=== PATIENT | female | born 1965 | race Caucasian/White ===

== ENCOUNTER → 2023-01-20 13:33 | Outpatient (CLI) | payer BC, SELFPAY ==
--- NOTE | ~2023-01-20 | MM_ITS ---
EXAMINATION: MM screening obnnie BI w elida HISTORY: Screening mammogram TECHNIQUE: Craniocaudal and mediolateral oblique 3-D tomosynthesis images were obtained and synthetic 2-D images were generated. CAD analysis was submitted and interpreted. COMPARISON: 06/04/2015 bilateral screening mammogram BREAST PARENCHYMAL COMPOSITION: The breasts are heterogeneously dense, which may obscure small masses . FINDINGS: History of prior benign right stereotactic breast biopsy, 06/26/2015. Numerous bilateral benign appearing microcalcifications are noted. There is no evidence of suspicious mass, calcification, or architectural distortion to suggest malig micky in either breast. There has been no suspicious interval change. IMPRESSION: 1. No mammographic evidence of malignancy. 2. Recommend routine screening mammography in one year. BI-RADS Category 2: Benign finding(s). Reviewed, dictated and finalized at location A.
== END ==
PROVIDERS: PCP Internal Medicine; Visit Provider Internal Medicine
DX: Z12.31 Encounter for screening mammogram for malignant neoplasm of breast (principal)
CPT/HCPCS: 77063; 77067

== ENCOUNTER 2024-01-22 06:46 | Emergency (ER) | payer BC, SELFPAY ==
--- NOTE | ~2024-01-22 | CT_ITS ---
EXAMINATION: CT abdomen pelvis w con DATE: 01/22/2024 08:17 INDICATION: Gross hematuria. TECHNIQUE: Computed tomography (CT) of the abdomen and pelvis was performed with 100 mL Omnipaque 350 intravenous contrast. Automated exposure control and iterative reconstruction technique were employe d. The dose-length product was 1469.00 mGy-cm. COMPARISON: None. FINDINGS: The visualized portion bases are clear without pneumonia or pleural effusion. The heart siz e is normal. No pericardial effusion. The liver and spleen are normal. There are changes of cholecyst ectomy. The pancreas and adrenal glands are normal. There is cortical thinning of the kidneys. There are no dilated loops of bowel. There are no pathologically enlarged lymph nodes. There is no free int raperitoneal fluid. There is a 6.1 x 1.4 cm mass at the left lateral wall of the bladder. There is se alex lumbar spondylosis. IMPRESSION: 1. Bladder mass, consistent with urothelial carcinoma versus hematoma. Reviewed, dictated and finalized at location E.
[2024-01-22 06:52] VITALS: BP 156/84; PULSE 79; RESP 16; TEMP 36.3; O2SAT 96
[2024-01-22 07:40] LABS: Bacteria Urine None Seen /hpf; Non Pathogenic Casts 0-2; RBC Urine >100 /hpf (0-2); Squamous Epithelial Cell Urine Occasional /hpf (Few); WBC Urine 21-50 /hpf (0-3)
[2024-01-22 07:46] LABS: Basophils Absolute Auto 0.1 K/mm3 (0.0-0.1); Basophils Percent Auto 0.8 % (0.2-1.2); Eosinophils Absolute Auto 0.4 K/mm3 (0-0.3); Eosinophils Percent Auto 4.6 % (0-4.4); Hematocrit 37.8 % (37.0-47.0); Hemoglobin 12.8 g/dL (12.0-15.0); Immature Granulocyte Absolute 0.03 K/mm3 (0.00-0.031); Immature Granulocyte Percent A 0.3 % (0-0.5); Lymphocytes Absolute Auto 1.85 K/mm3 (0.9-3.2); Mean Corpuscular HGB Conc 33.9 g/dl (32-36); Mean Corpuscular Hemoglobin 31.5 pg (26-34); Mean Corpuscular Volume 93.1 fl (80-100); Mean Platelet Volume 12.1 fl (7.4-10.4); Monocytes Absolute Auto 0.4 K/mm3 (0.1-0.6); Monocytes Percent Auto 4.2 % (2.6-8.5); Neutrophils Absolute Auto 6.1 K/mm3 (1.3-6.7); Neutrophils Percent Auto 69.1 % (45.5-73.1); Platelet Count Result 193 k/mm3 (150-375); Red Blood Count 4.06 M/mm3 (4.2-5.4); Red Cell Distribution Width 12.9 % (11.5-14.5); White Blood Count 8.8 K/mm3 (4.5-10.0)
--- NOTE | 2024-01-22 07:46 | PC.NURSE ---
Assumed care of pt. Pt voided 30ml of bloody urine with large blood clot. Pt states for 1 month has been urinating blood off and on . Seen by urologist at [facility], pt doesn't know urologist name. Pt reports is scheduled for a dye test then a scope this week sometime. Pt poor historian, doesn't have information with her from urologist. Dr. Mcmahan informed.
--- NOTE | 2024-01-22 07:47 | ED.GENADULT ---
HPI - General Adult General Chief complaint: Urogenital-Female Stated complaint: urinary frequency Time Seen by Provider: 01/22/24 06:53 History of Present Illness HPI narrative: 58-year-old female presenting to the emergency department for evaluation of hematuria. Patient has been having issues with hematuria and did have follow-up with Urology. Patient is scheduled to have a cystoscopy this week. Patient reports that she began having some increased abdominal pain abdominal cramping last night. Patient reports that she was having some increased urinary pressure last night and did pass a urinary clot while she was here Related Data Allergies Allergy/AdvReac Type Severity Reaction Status Date / Time naproxen Allergy Unknown Unverified 10/30/14 11:09 Review of Systems Review of Systems: All systems reviewed & are unremarkable except as noted in HPI and below Exam Narrative: APPEARANCE: Well appearing, no pain, no distress, well-nourished. HEAD: normocephalic, atraumatic. EYES: PERRLA/EOMI, conjunctivae clear. NOSE: Normal no drainage EARS:TMS clear with good light reflex. THROAT: Pharynx clear, no exudate. NECK: Supple. No adenopathy, no masses. RESPIRATORY: Airway patent, respirations nonlabored. Clear to auscultation bilaterally, no rales, rhonchi, wheezing. CARDIOVASCULAR: Regular rate and rhythm without murmurs rubs or gallops. ABDOMINAL: Soft, nontender, nondistended, normal bowel sounds MUSCULOSKELETAL: Moves all extremities. Strength/ROM intact, No edema, No calf tenderness. NEURO: Alert. Cranial nerves II through XII intact. Grossly intact SKIN: Warm, dry. Normal Color Course Vital Signs Vital signs: Vital Signs Temperature 97.4 F L 01/22/24 06:52 Pulse Rate 79 01/22/24 06:52 Respiratory Rate 16 01/22/24 06:52 Blood Pressure 156/84 H 01/22/24 06:52 Pulse Oximetry 96 01/22/24 06:52 Oxygen Delivery Room Air 01/22/24 06:52 Temperature 97.8 F 01/22/24 09:06 Pulse Rate 80 01/22/24 09:06 Respiratory Rate 18 01/22/24 09:06 Blood Pressure 127/82 01/22/24 09:06 Pulse Oximetry 97 01/22/24 09:06 Oxygen Delivery Room Air 01/22/24 06:52 Medical Decision Making [facility] Narrative Medical decision making narrative: 58-year-old female presenting emergency department for evaluation hematuria. Patient is afebrile with a stable hemoglobin of 12.8. INR is 0.9, patient has normal kidney function. UA does have gross hematuria. Patient had no significant residual urine on the postvoid residual bladder scan. CT scan did show evidence a bladder wall mass. Case was discussed with Dr. Centeno, since the patient is continuing to urinate has no urinary retention they did not feel the patient required CBI. They also felt the patient would be suitable for discharge home and continued to have outpatient cystoscopy as scheduled. Patient was updated on the results of the CT scan concern for bladder mass. Patient is also strongly encouraged to have close follow-up with Urology as scheduled. Patient was also encouraged to drink plenty fluids and was educated on reasons to return to the emergency department. Differential Diagnosis Differential Diagnosis: UTI, bladder wall mass, urinary retention Vital Signs Vital Signs: Vital Signs Temperature 97.4 F L 01/22/24 06:52 Pulse Rate 79 01/22/24 06:52 Respiratory Rate 16 01/22/24 06:52 Blood Pressure 156/84 H 01/22/24 06:52 Pulse Oximetry 96 01/22/24 06:52 Oxygen Delivery Room Air 01/22/24 06:52 Temperature 97.8 F 01/22/24 09:06 Pulse Rate 80 01/22/24 09:06 Respiratory Rate 18 01/22/24 09:06 Blood Pressure 127/82 01/22/24 09:06 Pulse Oximetry 97 01/22/24 09:06 Oxygen Delivery Room Air 01/22/24 06:52 Lab Data Lab results reviewed: Yes I reviewed the patient's lab results. 01/22/24 07:41 01/22/24 07:41 Labs: Lab Results 01/22/24 01/22/24 Range/Units 07:29 07:
[2024-01-22 07:50] VITALS: BP 128/69; PULSE 74; RESP 18; TEMP 36.4; O2SAT 96
[2024-01-22 07:50] LABS: Appearance Urine Turbid (Clear); Bilirubin Urine 1+ (Negative); Blood Urine 3+ (Negative); Color Urine Brown (Yellow); Glucose Urine UA 3+ mg/dL (Negative); Ketones Urine Negative (Negative); Leukocyte Esterase Ur 1+ LEU/UL (Negative); Nitrate Urine Negative (Negative); Protein Urine 2+ mg/dL (Negative); Specific Grav Ur 1.024 (1.001-1.035)
[2024-01-22 07:51] LABS: Add Urine Microscopic? YES
[2024-01-22 07:56] LABS: Alanine Aminotransferase 14 U/L (6-35); Albumin Level 4.1 g/dL (3.5-5.1); Alkaline Phosphatase 66 U/L (38-126); Anion Gap 7 mmol/L (4-12); Aspartate Amino Transferase 20 U/L (14-36); Bilirubin,Total 0.6 mg/dL (0.2-1.3); Blood Urea Nitrogen 21 mg/dL (7-17); Calcium 8.9 mg/dL (8.4-10.2); Carbon Dioxide 24 mmol/L (22-30); Chloride 105 mmol/L (98-107); Estimated CRCL calculation 98 ml/min; Estimated Glomerular Filt Rate > 60; Glucose 275 mg/dL (65-110); Potassium 4.5 mmol/L (3.4-5.0); Sodium 136 mmol/L (137-145)
[2024-01-22 08:00] LABS: INR 0.9; Prothrombin Time 12.7 Seconds (11.1-14.7)
[2024-01-22 08:01] LABS: Partial Thromboplastin Time 26.3 Seconds (22.3-36.8)
[2024-01-22 08:41] VITALS: BP 135/80; PULSE 72; RESP 18; TEMP 36.6; O2SAT 97
[2024-01-22 09:06] VITALS: BP 127/82; PULSE 80; RESP 18; TEMP 36.6; O2SAT 97
== END 2024-01-22 09:08 | disposition home or self-care (01) ==
PROVIDERS: Emergency Provider Emergency Medicine; PCP Family Medicine
DX: R31.9 Hematuria, unspecified (principal); N32.9 Bladder disorder, unspecified
CPT/HCPCS: 36415; 74177; 80053; 81001; 85025; 85610; 85730; 87086; 87088; 99284; Q9967

== ENCOUNTER 2024-01-30 15:09 | Outpatient (CLI) | payer BC, SELFPAY ==
--- NOTE | 2024-01-30 15:15 | ECG_ITS ---
Test Date: 2024-01-30 15:40:24 Measurements Intervals Rolfe Rate: 67 P: 0 DC: 0 QRS: 42 QRSD: 99 T: 48 QT: 396 QTc: 420 Interpretive Statements SINUS RHYTHM WITH 2ND DEGREE AV BLOCK, MOBITZ TYPE II LOW QRS VOLTAGE IN PRECORDIAL LEADS [QRS DEFLECTION < 1.0 mV IN CHEST LEADS] No previous ECG available for comparison Electronically Signed On 01-31-2024 11:46:05 CDT by Etta Jensen M.D.
== END 2024-01-30 15:10 | disposition home or self-care (01) ==
LOC: ANHSURGERY 15:14
PROVIDERS: PCP Family Medicine; Visit Provider Urology
DX: I10 Essential (primary) hypertension (principal); Z01.818 Encounter for other preprocedural examination
CPT/HCPCS: 93005

== ENCOUNTER 2024-02-01 00:59 | Day surgery (SDC) | payer BC, SELFPAY ==
[2024-01-26 11:47] VITALS: BMI 40.8
--- NOTE | 2024-01-26 11:56 | PC.NURSE ---
Report to the Outpatient Waiting Room, entrance under the green pavilion located off [facility], at time _1200_ on date _[id number]_. Planned Procedure Time: _1400_. Time changes happen often and if your time is changed the preop area will call you the afternoon before. - You and your visitor will be asked to self-screen and do not enter if you have any COVID symptoms. - A mask is optional within the hospital at this time. Patients may have clear liquids (water, carbonated beverages, clear teas, apple juice) until 3 hours prior to surgery with a maximum of 20 ounces. - No food from midnight until time of surgery Take the following medications with a SIP of water the morning of surgery: __None DO NOT STOP ANY OF YOUR OTHER PRESCRIPTION MEDICATIONS PRIOR TO SURGERY ?EXCEPT THE FOLLOWING Medications to discontinue per physician ____None Date to take last dose Please no make-up, nail kazakh, hairspray, perfume, deodorant, or body powder the day of surgery. No jewelry (including any body piercings) or valuables the day of surgery, leave them at home. Please take a shower or bath the night before, or the morning of, surgery with an antibacterial soap. Wear comfortable, loose fitting clothing. - Jewelry must be removed prior to entering the operating room. Rings and piercings that are not removed may be cut off. - The hospital will not accept responsibility for valuables. - Please leave all valuables, including medications, at home the day of surgery. If you are going home after surgery, a licensed dedicated local truck driver must drive you home. - NO public transportation without another adult if you receive anesthesia. - We recommend that an adult stay with you for 24 hours following discharge. - We also recommend that you do not drive, make important decision, drink alcoholic beverages, or take any drugs that were not prescribed by your health care provider for at least 24 hours after your discharge time. Follow any additional instructions given to you from your surgeon. If you or anyone in your household have experienced Covid symptoms in the past week, please notify your surgeon or the nurse liaison at the phone number below for possible testing. Telephone instructions given to Jooanthony__and asked if any additional questions and then verbalized understanding. Patient advised to call surgeon office or pre surgery nurse liaison [phone] if any additional questions.
[2024-02-01] VITALS (9 sets, daily range): BP systolic 102–139; BP diastolic 65–83; PULSE 60–87; RESP 12–20; TEMP 36.1–36.2; O2SAT 94–100
--- NOTE | 2024-02-01 05:59 | WPDHPUPDATE1 ---
History and Physical Update Update Date/Time: 02/01/24 05:59 History and Physical has been reviewed, including an updated exam of the patient. There are NO changes in the patient's condition. Risks, benefits, and alternatives have been discussed and questions answered. Patient agrees to proceed with procedure.
[2024-02-01] MEDS: LACTATED RINGERS 1,000 ML 30 ML IV CONT ×2 (12:30→15:34)
[2024-02-01 12:39] LABS: Glucose Point of Care 203 mg/dl (65-105)
--- NOTE | 2024-02-01 12:40 | P.PNAN_ITS ---
Anes - Initial Pre Proc Eval Procedure: Operation Date: 02/01/24 14:00 Proposed Procedures p Trans Urethral Resection Bladder Tumor with Gemcitabine Instillation - Mayo Grier MD Date/Time: 02/01/24 12:40 Surgeon: Mayo Grier MD Pre Op Diagnosis: bladder tumor Patient Data Age: 58 Gender: F Height: 1.65 m Weight: 111.4 kg Allergies Allergy/AdvReac Type Severity Reaction Status Date / Time naproxen Allergy Mild Hives Unverified 01/26/24 11:43 Home Medications Medication Instructions Recorded Confirmed Type atorvastatin 10 mg tablet 10 mg PO QPM 01/26/24 01/26/24 History famotidine 20 mg tablet 20 mg PO BID 01/26/24 01/26/24 History furosemide 40 mg tablet 40 mg PO QAM 01/26/24 01/26/24 History lisinopril 5 mg tablet 5 mg PO QAM 01/26/24 01/26/24 History metformin 1,000 mg tablet 100 mg PO DAILY bid 01/26/24 01/26/24 History montelukast 10 mg tablet 10 mg PO QAM 01/26/24 01/26/24 History pioglitazone 15 mg tablet 15 mg PO HS 01/26/24 01/26/24 History Laboratory Tests 02/01/24 12:27 POC Capillary Glucose 203 H mg/dl (65-105) Patient hx anesthesia problems: none Family hx anesthesia problems: none Results Review: All pre-operative results and documents have been reviewed as part of the pre- operative evaluation. [facility] Social History Social History Smoking packs per day: 1 Smoking cigarettes per day: 20.0 Years smoked: 20 Smoking pack-years: 20.00 Smoking status: Former smoker Tobacco type: cigarettes Smoking end date: 01/25/14 Living arrangements: with family Spiritual care concerns: No Anes - Eval Final PreProcedure Day of Procedure 02/01/24 12:40 Patient weight: morbidly obese Heart: regular rate and rhythm Lungs: decreased breath sounds Airway: Mallampati scale class II Neurological: alert and oriented Last oral intake: >/= 8 hours ASA classification: III Emergent: no Anesthetic plan: proceed Anesthesia type and monitoring: general LMA and standard monitoring Results Review: All pre-operative results and documents have been reviewed as part of the pre- operative evaluation. Informed Consent: The patient's anesthetic plan and its attendant risks and benefits were discussed with the patient/family/POA. Questions were solicited and answers provided to the satisfaction of the patient/family/POA.
[2024-02-01] MEDS: ceFAZolin 2 GM/D5W 50 ML 2 GM/50 ML BAG IVPB (13:40)
[2024-02-01 14:48] LABS: Glucose Point of Care 178 mg/dl (65-105)
[2024-02-01] MEDS: SODIUM CHLORIDE 0.9% IV 23.7 ML, GEMCITABINE HCL 1,000 MG BLADDER ×2 (14:54→14:55)
--- NOTE | 2024-02-01 14:58 | W.PM.PROC2 ---
Procedure Note - Detailed Date of Procedure 02/01/24 Pre-op Diagnosis Bladder tumor Post-op Diagnosis Same Procedure Performed TURBT (large, 5-6cm) Surgeon Mayo Grier MD Anesthesia General Description of Procedure This pleasant lady is prepped and draped in routine sterile fashion in the OR after the uneventful induction of a general endotracheal anesthetic while in a supine position. Twenty-four F resectoscope was placed in her bladder. Her bladder was carefully inspected. She has this neoplastic growth overlying the left anterior lateral bladder wall. It is somewhat solid in appearance and quite sizable, measuring approximately 5-6 cm. Using a 24 F resectoscope I was able to resect this in its entirety. I sent separate specimen from the body of the bladder tumor in the bladder tumor base. There was no apparent compromise to the integrity of the bladder wall. Base and periphery were vigorously cauterized. This was all done with care to avoid injury to the ureteral orifices. Patient was taken recovery room in good condition Drains Yes Packing No Pathology Yes Complications No immediate complications Condition Stable Disposition PACU
[2024-02-01] MEDS: fentaNYL CITRATE INJ (*CRX) 100 MCG/2 ML VIAL 25 MCG IV PUSH ×4 (14:59→15:33)
--- NOTE | 2024-02-01 15:01 | P.OP_ITS ---
Procedure Note - Detailed Date of Procedure 02/01/24 Pre-op Diagnosis Bladder tumor Post-op Diagnosis Same Procedure Performed Gemcitabine installation Surgeon Mayo Grier MD Anesthesia General and None Description of Procedure With the patient in the supine position, a 16F Mccartney catheter is placed using s terile technique. Using a protective facemask, gown and double layer of gloves Gemcitabine 2gm in 100cc saline is administered through the catheter/into the bladder. The catheter is then plugged. Patient was instructed to lie supine x20min, then to roll both the left and right x20 min. each. Total dwell time will be 60 min., after which the bladder will be drained and catheter removed.
[2024-02-01] MEDS: oxyCODONE HCL (*CRX) 5 MG TAB IR PO (16:23)
== END 2024-02-01 16:58 | disposition home or self-care (01) ==
PROVIDERS: PCP Family Medicine; Visit Provider Urology
PROC: 0TBB8ZZ Excision of Bladder, Via Natural or Artificial Opening Endoscopic (ICD-10-PCS; CPT 52240; principal; 2024-02-01 14:00)
DX: C67.2 Malignant neoplasm of lateral wall of bladder (principal); Z87.891 Personal history of nicotine dependence; E66.01 Morbid (severe) obesity due to excess calories; Z68.41 Body mass index [BMI] 40.0-44.9, adult; Z79.84 Long term (current) use of oral hypoglycemic drugs
CPT/HCPCS: 52240; 51720; 82948; 88305; A9270; J0330; J0690; J1100; J2250; J2405; J2704; J3010; J7120; J9201

== ENCOUNTER 2024-03-14 01:53 | Day surgery (SDC) | payer BC, SELFPAY ==
[2024-03-12 08:39] VITALS: BMI 41.5
--- NOTE | 2024-03-12 09:02 | SUR.PREOP ---
Report to the Outpatient Waiting Room, entrance under the green pavilion located off [facility], at time 0900 on date 03/14/24. Planned Procedure Time: 1100. Time changes happen often and if your time is changed the preop area will call you the afternoon before. - You and your visitor will be asked to self-screen and do not enter if you have any COVID symptoms. - A mask is optional within the hospital at this time. Patients may have clear liquids (water, carbonated beverages, clear teas, apple juice) until 3 hours prior to surgery with a maximum of 20 ounces. - No food from midnight until time of surgery Take the following medications with a SIP of water the morning of surgery: N/A DO NOT STOP ANY OF YOUR OTHER PRESCRIPTION MEDICATIONS PRIOR TO SURGERY ?EXCEPT THE FOLLOWING Medications to discontinue per physician N/A Date to take last dose N/A Please no make-up, nail slovenian, hairspray, perfume, deodorant, or body powder the day of surgery. No jewelry (including any body piercings) or valuables the day of surgery, leave them at home. Please take a shower or bath the night before, or the morning of, surgery with an antibacterial soap. Wear comfortable, loose fitting clothing. Children are encouraged to wear pajamas. - Jewelry must be removed prior to entering the operating room. Rings and piercings that are not removed may be cut off. - The hospital will not accept responsibility for valuables. - Please leave all valuables, including medications, at home the day of surgery. If you are going home after surgery, a licensed milk driver must drive you home. - NO public transportation without another adult if you receive anesthesia. - We recommend that an adult stay with you for 24 hours following discharge. - We also recommend that you do not drive, make important decision, drink alcoholic beverages, or take any drugs that were not prescribed by your health care provider for at least 24 hours after your discharge time. Follow any additional instructions given to you from your surgeon. If you or anyone in your household have experienced Covid symptoms in the past week, please notify your surgeon or the nurse liaison at the phone number below for possible testing. Telephone instructions given to RENEA BUSTAMANTE and asked if any additional questions and then verbalized understanding. Patient advised to call surgeon office or pre surgery nurse liaison [phone] if any additional questions.
[2024-03-14] VITALS (8 sets, daily range): BP systolic 131–162; BP diastolic 65–94; PULSE 63–81; RESP 13–20; TEMP 36.2–36.4; O2SAT 96–99
--- NOTE | 2024-03-14 06:12 | WPDHPUPDATE1 ---
History and Physical Update Update Date/Time: 03/14/24 06:12 History and Physical has been reviewed, including an updated exam of the patient. There are NO changes in the patient's condition. Risks, benefits, and alternatives have been discussed and questions answered. Patient agrees to proceed with procedure.
--- NOTE | 2024-03-14 09:33 | P.PNAN_ITS ---
Anes - Initial Pre Proc Eval Procedure: Operation Date: 03/14/24 11:00 Proposed Procedures p Re-Resection Bladder Tumor Base - Mayo Grier MD Date/Time: 03/14/24 09:33 Surgeon: Mayo Grier MD Pre Op Diagnosis: bladder CA Patient Data Age: 58 Gender: F Height: 1.65 m Weight: 113.4 kg Allergies Allergy/AdvReac Type Severity Reaction Status Date / Time naproxen Allergy Mild Hives Verified 03/12/24 08:41 Home Medications Medication Instructions Recorded Confirmed Type atorvastatin 10 mg tablet 10 mg PO QPM 01/26/24 03/12/24 History famotidine 20 mg tablet 20 mg PO BID 01/26/24 03/12/24 History furosemide 40 mg tablet 40 mg PO QAM 01/26/24 03/12/24 History lisinopril 5 mg tablet 5 mg PO QAM 01/26/24 03/12/24 History metformin 1,000 mg tablet 100 mg PO BID bid 01/26/24 03/12/24 History montelukast 10 mg tablet 10 mg PO QAM 01/26/24 03/12/24 History pioglitazone 15 mg tablet 15 mg PO HS 01/26/24 03/12/24 History dulaglutide 0.75 mg/0.5 mL 0.75 mg subcut WEEKLY 03/12/24 03/12/24 History subcutaneous pen injector (Trulicity) Patient hx anesthesia problems: none Family hx anesthesia problems: none Results Review: All pre-operative results and documents have been reviewed as part of the pre- operative evaluation. [facility] Past Medical History Medical History (Updated 03/14/24 @ 09:33 by Lonnie Lazo MD) Diabetes HTN (hypertension) Morbid obesity Social History Social History Smoking packs per day: 1 Smoking cigarettes per day: 20.0 Years smoked: 20 Smoking pack-years: 20.00 Smoking status: Former smoker Tobacco type: cigarettes Smoking end date: 01/25/14 Substance use: former Living arrangements: with family Spiritual care concerns: No Anes - Eval Final PreProcedure Day of Procedure 03/14/24 09:33 Patient weight: morbidly obese Heart: regular rate and rhythm Lungs: clear to auscultation Airway: Mallampati scale class II Neurological: alert and oriented Last oral intake: >/= 8 hours ASA classification: III Emergent: no Anesthetic plan: proceed Anesthesia type and monitoring: general LMA and standard monitoring Results Review: All pre-operative results and documents have been reviewed as part of the pre- operative evaluation. Informed Consent: The patient's anesthetic plan and its attendant risks and benefits were discussed with the patient/family/POA. Questions were solicited and answers provided to the satisfaction of the patient/family/POA.
[2024-03-14] MEDS: LACTATED RINGERS 1,000 ML 30 ML IV CONT (10:17)
[2024-03-14] MEDS: ceFAZolin 2 GM/D5W 50 ML 2 GM/50 ML BAG IVPB (10:38)
--- NOTE | 2024-03-14 11:13 | W.PM.PROC2 ---
Procedure Note - Detailed Date of Procedure 03/14/24 Pre-op Diagnosis History T1, high-grade bladder tumor Post-op Diagnosis Same Procedure Performed Re-resection bladder tumor base Surgeon Mayo Grier MD Anesthesia General Description of Procedure Patient is brought to the op suite she has prepped draped in routine sterile fashion while in dorsal lithotomy position after the uneventful induction of a general LMA anesthetic. A 24 F resectoscope was placed in her bladder. The bladder was carefully inspected. There was an area of recent resection the left lateral wall. There was no obvious recurrent neoplasm there or throughout the remainder of the bladder. Using a 24 F loop I resected the base of this tumor site and cauterized both the base and periphery. Patient tolerated this procedure well was taken recovery room in good condition. Drains No Packing No Pathology Yes Complications No immediate complications Condition Stable
[2024-03-14 11:25] LABS: Glucose Point of Care 146 mg/dl (65-105)
[2024-03-14] MEDS: fentaNYL CITRATE INJ (*CRX) 100 MCG/2 ML VIAL 25 MCG IV PUSH ×2 (11:34→11:37)
== END 2024-03-14 12:44 | disposition home or self-care (01) ==
PROVIDERS: PCP Family Medicine; Visit Provider Urology
PROC: 0TBB8ZZ Excision of Bladder, Via Natural or Artificial Opening Endoscopic (ICD-10-PCS; CPT 52235; principal; 2024-03-14 11:00)
DX: C67.2 Malignant neoplasm of lateral wall of bladder (principal); E11.9 Type 2 diabetes mellitus without complications; I10 Essential (primary) hypertension; E66.01 Morbid (severe) obesity due to excess calories; Z68.41 Body mass index [BMI] 40.0-44.9, adult; Z87.891 Personal history of nicotine dependence; Z79.85 Long-term (current) use of injectable non-insulin antidiabetic drugs; Z79.84 Long term (current) use of oral hypoglycemic drugs
CPT/HCPCS: 52235; 82948; 88305; J0690; J2250; J2405; J2704; J3010; J7120

== ENCOUNTER 2025-01-23 11:40 | Outpatient (CLI) | payer OTHER, SELFPAY ==
--- NOTE | ~2025-01-23 | MM_ITS ---
EXAMINATION: MM screening bonnie BI w elida HISTORY: Screening TECHNIQUE: Craniocaudal and mediolateral oblique 3-D tomosynthesis images were obtained and synthetic 2-D images were generated. CAD analysis was submitted and interpreted. COMPARISON: Comparison to multiple prior studies sequentially, with oldest reviewed study dated 04/02. BREAST PARENCHYMAL COMPOSITION: Dense: The breasts are heterogeneously dense, which may obscure small masses FINDINGS: Stable benign-appearing bilateral breast calcifications. There is no evidence of suspicious mass, calcification, or architectural distortion to suggest malignancy in either breast. There has b een no suspicious interval change. IMPRESSION: 1. No mammographic evidence of malignancy. 2. Recommend routine screening mammography in one year. BI-RADS Category 2: Benign finding(s). Reviewed, dictated and finalized at location A.
--- NOTE | ~2025-01-23 | DEXA_ITS ---
Bone Density Report Name: RENEA BUSTAMANTE Age: 59 Sex: Female Ethnicity: White Date of : 1965 Indication: postmenopausal; screening for osteoporosis; height loss; cancer; Referring Provider: LORENZO, JUSTIN Zhang Study: Bone densitometry was performed. Exam Date: January 23, 2025 Accession number: [id number] Bone Density: Region BMD T-score Z-score Classification AP Spine(L1-L4) 1.140 0.8 2.1 Normal Femoral Neck (Left) 0.813 -0.3 0.8 Normal Total Hip (Left) 1.224 2.3 3.1 Normal Femoral Neck (Right) 0.809 -0.4 0.8 Normal Total Hip (Right) 1.182 2.0 2.8 Normal Femoral Neck Mean 0.811 -0.3 0.8 Normal Total Hip Mean 1.203 2.1 2.9 Normal World Health Organization criteria for BMD impression classify patients as: Normal (T-score at or above -1.0), Osteopenia (T-score between -1.0 and -2.5), or Osteoporosis (T-score at or below -2.5). 10-year Fracture Risk: FRAX not reported because: All T-scores for Spine Total, Hip Total, Femoral Neck at or above -1.0 Clinical Information Provided by Patient: Has used the following medications: Vitamin D Has the following medical conditions: Cancer Patient maximum height was 65 Menopause Age: 54 No regular weight bearing exercise Does not regularly consume dairy products Drinks caffeinated beverages Onset of menses at age 15 Number of children 2 Impression: The patient has normal bone mass. Discussion: BONE DENSITY IS ABOVE THE MINIMUM DESIRABLE LEVEL AT ALL SKELETAL SITES TESTED. This patient?s bone mineral density is above the minimum desirable level (T-score -1.0 or better) at all sites measured. The patient should follow a healthful lifestyle (good nutrition with adequate calcium and vitamin D, and appropriate weight-bearing exercise). Follow-Up: Consider repeating this study in 5 years or sooner if there is some new clinical indication. Reported by: KANIKA on 01/23/2025 12:13:00 PM. Reviewed, dictated and finalized at location A.
--- OUTSIDE RECORDS SUMMARY | 2025-01-23 12:28 | XMS_ITS | Data Portability ---
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 Plan of Treatment Reminders Order Date Submit Date Provider Last Modified By Organization Details Last Modified Time Details Appointments None recorded . Lab pap, IG + reflex HPV 2022 023 LAUREN [facility], [address], [place], [address], 3 16:13:48 noninvas rock colorect al cancer DNA + occult blood screenin g, QL, stool 2022 023 [facility] (Cologuard Orders Only), [address], [address], [place], [address], 4 17:00:45 HbA1c (hemoglo bin A1c), blood 2022 023 [facility] In-Office Order, Internal Use Only DO Not Attach Compendium DO Not Attach Compendium, Do Not Delete/merge, [id number] 3 11:45:42 Referral gynecolo gist referral - Please call patient for praneeth bosch1 2022 023 bert LOPEZ, [address] [place], [address], 3 13:05:03 diabetic ophthalm ology referral - Please call patient for the millie segura thanks! 2022 023 [email or web address] [employer], [address], [place], [address], 3 10:59:59 Procedures None recorded . Surgeries None recorded . Imaging MAMMO, screenin g, bilatera l 2022 023 [facility] (Mammography) , [address], [place], [address], 3 15:52:25 Medication Orders amoxicil marie 500 mg-potas sium clavulan ate 125 mg tablet 2022 023 [facility], [address] [place] [address], [id number], 3 12:43:18 Olinda Allergy 60 mg tablet 2022 023 [facility], [address] [place] [address], [id number], 3 12:13:06 monteluk ast 10 mg tablet 2022 023 [facility], [address] [place] [address], [id number], 4 09:33:52 famotidi ne 20 mg tablet 2022 023 [facility], [address] [place] [address], [id number], 4 09:31:56 Nesina 25 mg tablet 2022 023 [facility], [address] [place] [address], [id number], 3 16:36:04 albutero l sulfate 2.5 mg/3 mL (0.083 %) solution for nebuliza tion 2022 023 [facility], [address] [place] [address], [id number], 3 11:51:33 albutero l sulfate HFA 90 mcg/actu ation aerosol inhaler 2022 023 [facility], [address] [place] [address], [id number], 3 11:51:35 Symbicor t 160 mcg-4.5 mcg/actu ation HFA aerosol inhaler 2022 023 [facility], [address] [place] [address], [id number], 3 11:51:33 atorvast atin 10 mg tablet 2022 023 [facility], [address] [place] [address], [id number], 4 09:31:59 lisinopr il 5 mg tablet 2022 023 [facility], [address] [place] [address], [id number], 4 09:31:59 furosemi de 40 mg tablet 2022 023 [facility], [address] [place] [address], [id number], 4 09:31:56 metformi n 1,000 mg tablet 2022 023 [facility], [address] [place] [address], [id number], 4 09:31:56 pioglita zone 15 mg tablet 2022 023 [facility], [address] [place] [address], [id number], 4 09:31:58 triamcin olone acetonid e 0.1 % topical cream 2022 023 [facility], [address] [place] [address], [id number], 10:42:10 Patient TargetsNo targets recorded. Patient Instructions Encounter Date Encounter Id Patient Instructions Last Modified By Organization Details Last Modified Time 09/16/2022 [id number] mammogram: about this test [facility] Not available 09/16/2022 10:42:11 A healthy lifest yle: care instructions [facility] Not available 09/16/2022 10:42:10 gastroesophageal reflux disease (GERD): care instructions [facility] Not available 09/16/2022 10:42:11 chronic obstruct rock pulmonary disease (COPD): care instructions [facility] Not available 09/16/2022 10:42:10 learning about c opd and how to prevent lung infections [facility] Not available 09/16/2022 10:42:10 high cholesterol : care instructions [facility] Not available 09/16/2022 10:42:11 leg and ankle ed sebastian: care instructions [facility] Not available 09/16/2022 10:42:11 02/10/2023 [id number] learning about t ype 2 diabetes [facility] Not available 02/10/2023 11:45:42 type 2 diabetes: care instructions [facility] Not available 02/10/2023 11:45:42 chronic obstruct rock pulmonary disease (COPD): care instructions [facility] Not available 02/10/2023 11:45:41 learning about c opd and how to prevent lung infections [facility] Not available 02/10/2023 11:45:42 high cholesterol : care instructions [facility] Not available 02/10/2023 11:45:42 04/28/2023 [id number] well visit, wome n 50 to 65: care instructions Not available 04/28/2023 09:04:26 A healthy lifest yle: care instructions Not available 04/28/2023 09:04:26 Naye Fernandez Discussed with NOAH Larios Not available 04/28/2023 14:40:39 06/23/2023 [id number] leg and ankle ed sebastian: care instructions jhsieh Not available 06/23/2023 12:09:55 Acute Sinusitis: Care Instructions jhsieh Not available 06/23/2023 11:58:29 When You Want to Lose Weight: Care Instructions jhsieh Not available 06/23/2023 12:09:55 gastroesophageal reflux disease (GERD): care instructions jhsieh Not available 06/23/2023 12:09:55 high cholesterol : care instructions jhsieh Not available 06/23/2023 12:09:55 Reason for Referral Diabetic Ophthalmology Refer ral for Diabetes mellitus Please call patient for the appointment, thanks! 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 for Sc reening for malignant neoplasm of cervix Please call patient for appointment, thanks1 Referring Physician: Pascale Polanco, Internal Medicine, Encounter Date: 02/10/2023 Results Created Date Observation Date Name Description Value Unit Range Abnormal Flag Note LastModifiedBy Organization Detail LastModifiedTime 04/27/20 24 04/27/2024 COLOG UARD cologuard result Cancel led - Order d not applic able Not Available [facility] (Cologuard Orders Only) [address], [place], [address], 04/27/2024 08:17:20 02/11/20 23 02/10/2023 HbA1c (hemo globi n A1c), blood HbA1c 8.6% Not Available In-Office Order Internal Use Only DO Not Attach Compendium DO Not Attach Compendium, Do Not Delete/merge, [id number] 02/10/2023 10:59:37 04/28/20 23 05/01/2023 IGP,A PTIMA HPV,A GE GDLN age gdln acog testing 30-65 Not Available [facility] ([facility]) [address], [place], [address], 05/02/2023 16:13:48 04/28/20 23 05/02/2023 IGP, APTIM A HPV, RFX 16/18 ,45 diagnosis: Commen t NEGAT ROCK FOR INTRA EPITH ELIAL LESIO N OR PATI WASSERMAN . Not Available [facility] ([facility]) [address] [facility], [place], [address], 05/02/2023 16:13:49 04/28/20 23 05/02/2023 IGP, APTIM A HPV, RFX 16/18 ,45 specimen adequacy: Paige jackson Satis facto ry for evalu ation . Endoc ervic al and/o r squam ous metap lasti c cells (endo cervi scarlett compo nent) are prese nt. Not Available [facility] ([facility]) [address] [facility], [place], [address], 05/02/2023 16:13:49 04/28/20 23 05/02/2023 IGP, APTIM A HPV, RFX 16/18 ,45 clinician provided ICD10: Paige jackson Z01.4 19 Not Available [facility] ([facility]) [address] [facility], [place], [address], 05/02/2023 16:13:49 04/28/20 23 05/02/2023 IGP, APTIM A HPV, RFX 16/18 ,45 performed by: Paige piper, Kathi jackson (ASCP ) Not Available [facility] ([facility]) [address] [facility], [place], [address], 05/02/2023 16:13:49 04/28/20 23 05/02/2023 IGP, APTIM A HPV, RFX 16/18 ,45 . . Not Available [facility] ([facility]) [address] [facility], [place], [address], 05/02/2023 16:13:49 04/28/20 23 05/02/2023 IGP, APTIM A HPV, RFX 16/18 ,45 note: Paige jackson The Pap smear is a scree larisa test west velázquez to aid in the detec tion of ayse ligna nt and malig nant condi tions of the uteri ne cervi x. It is not a diagn ostic proce dure and shoul d not be used as the sole means of detec ting cervi scarlett cance r. Both false -posi tive and false -nega tive repor ts do occur . Not Available [facility] ([facility]) [address] [facility], [place], [address], 05/02/2023 16:13:49 04/28/20 23 05/02/2023 IGP, APTIM A HPV, RFX 16/18 ,45 test methodology: Commen t This liqui d based ThinP rep(R ) pap test was rhoda velázquez with the use of an image guide cj cordova Not Available [facility] ([facility]) [address] [facility], [place], [address], 05/02/2023 16:13:49 04/28/20 23 05/02/2023 IGP, APTIM A HPV, RFX 16/18 ,45 HPV aptima Negati ve negati ve This nucle ic acid ampli ficat ion test detec ts fourt een high- risk HPV types (16,1 8,31, 33,35 ,39,4 5,51, 52,56 ,58,5 9,66, 68) witho ut diffe renti ation . Not Available [facility] ([facility]) [address] [facility], [place], [address], 05/02/2023 16:13:49 04/28/20 23 05/02/2023 IGP, APTIM A HPV, RFX 16/18 ,45 HPV genotype reflex Commen t Crite mitzi not met, HPV Genot ype not perfo rmed. Not Available [facility] ([facility]) [address] [facility], [place], [address], 05/02/2023 16:13:49 01/21/20 23 01/20/2023 MAMMO , scree larisa, bilat eral No observ ation record ed. [facility] [address], [place], [address], 01/24/2023 09:05:19 Result Notes None recorded. Problems Name Problem SNOMED Code Status Onset Date Resolution Date Notes Provider Name and Address Organization Details Recorded Time Headache 61266975 Active Mireille Lux MA null, [place] - [facility] 5 12:12:46 Chronic obstructive pulmonary disease 47317023 Active Pascale Polanco MD Attn: Latanya potts,[address] [place], [address], [place] [facility] 6 12:34:52 Morbid obesity 029730208 Active Pascale Polanco MD Attn: Latanya potts,[address] [place], [address], [place] [facility] 6 12:34:52 Chronic headache disorder 386402677 Active Pascale Polanco MD Attn: Latanya potts,[address] [place], [address], [place] [facility] 5 12:31:58 Edema of lower extremity 644298577 Active Pascale Polanco MD Attn: Latanya potts,[address] [place], [address], [place] [facility] 6 12:34:52 Metabolic syndrome X 928730208 Active Pascale Polanco MD Attn: Latanya potts,[address] [place], [address], [place] [facility] 6 12:34:52 Gastroesophage al reflux disease 088979074 Active Pascale Polanco MD Attn: Latanya potts,[address] [place], [address], [place] [facility] 6 12:34:52 Calcification of breast 062479911 Active Pascale Polanco MD Attn: Latanya potts,[address] [place], [address], [place] [facility] 5 13:18:36 Mammography abnormal 321243357 Active Jazzy Stern LPN null, [place] - [facility] 5 15:24:18 Diabetes mellitus 46234581 Active Pascale Polanco MD Attn: Accountluis mnauel g,[address] [facility], [place], [place], [address] [place] [address] 2, [place] - [facility] 6 12:34:52 Secondary hyperlipidemia 034201719 Active Pascale Polanco MD Attn: Accountin g,[address] [facility], [place], [place], [address] [place] [address] 2, [place] - [facility] 5 13:18:36 Pneumonia 655962918 Active Pascale Polanco MD Attn: Accountluis manuel g,[address] [facility], [place], [place], [address] [place] [address] 2, [facility] - [facility] 6 12:45:07 Hyperlipidemia 01614749 Active Pascale Polanco MD Attn: Accountluis manuel g,[address] [facility], [place], [place], [address] [place] [address] 2, [facility] - [facility] 6 12:34:52 Microalbuminur ic diabetic nephropathy 425982400 Active Pascale Polanco MD Attn: Accountluis manuel g,[address] [facility], [place], [place], [address] [place] [address] 2, [facility] - [facility] 6 12:34:52 Problem Notes None recorded. Procedures Surgical History Date Name Laterality Status Provider Name and Address Organization Details Recorded Time 023 Date of Last Pap Smear completed Samia Kaplan [place] [facility] 04/28/2023 08:32:26 023 Date of Last Mammogram completed Samia Kaplan [place] [facility] 04/25/2023 12:49:22 018 Endometrial Biopsy completed Dayanna Schwarz MD Attn: Accounting,[address] [facility], [place], [address], [facility] - [facility] 05/28/2018 17:06:43 999 LEEP completed Mireille Lux [place] [facility] 09/05/2014 12:08:22 995 Gastrointestinal Surgery completed Mireille Lux MA [facility] 09/05/2014 12:08:22 Dilation and Curettage completed Mireille Lux MA [facility] 09/05/2014 12:08:22 Tubal Ligation completed Mireille Lux MA [facility] 09/05/2014 12:08:22 Imaging Results None recorded. Procedure Notes None recorded. Medical Equipment None Reported. Allergies Allergen ID Allergen Name Allergen Category Reaction Reaction Severity Criticality Documentation Date Start Date Code Code System Note Provider Name and Address Organization Details Recorded Time Aleve medicatio n hives severe Not available 09/05/20142013 01186 1 RxNorm Mireille Lux MA null, [facility] 5 12:05:56 Medications Name Sig Start Date Stop Date Status Note LastModified by Organization Details LastModified Time prednisone tab 20mgprednis one active Not Available Not Available Not Available symbicort 160-4.5 mcg/act aero 02/14 completed Not Available Not Available Not Available erythromyci n 5 mg/gm oint active Not Available Not Available Not Available furosemide 40 mg tabs 02/14 completed Not Available Not Available Not Available ventolin hfa 108 (90 base) mcg/actaers 02/14 completed Not Available Not Available Not Available ventolin hfa aerventolin hfa active Not Available Not Available Not Available spironolact one 50 mg tabs 02/14 completed Not Available Not Available Not Available methylpredn isolone dose pack 4 mg tabs active Not Available Not Available Not Available diphenhydra m cap 25mgdiphenh ydramine hcl active Not Available Not Available Not Available pantoprazol e sodium 20 mg tbec 02/14 completed Not Available Not Available Not Available furosemide tab 40mgfurosem isaac active Not Available Not Available Not Available azithromyci n 250 mg tabs active Not Available Not Available Not Available symbicort aer 160-4.5symb icort active Not Available Not Available Not Available furosemide 40 mg tablet active Not Available Not Available Not Available pioglitazon e 15 mg tablet active Not Available Not Available Not Available metformin 500 mg tablet Take 1 tablet twice a day by oral route with meals for 30 days. 04/17 completed Not Available Not Available Not Available potassium chloride ER 10 mEq capsule,ext ended release active Not Available Not Available Not Available albuterol sulfate 2.5 mg/3 mL (0.083 %) solution for nebulizatio n USE 3 ML VIA NEBULIZER THREE TIMES DAILY DIRECTED 2022 active Not Available Not Available Not Avai lable atorvastati n 10 mg tablet active Not Available Not Available Not Available azithromyci n 250 mg tablet 02/14 completed Not Available Not Available Not Available pravastatin 40 mg tablet Take 1 tablet every day by oral route at dinner for 30 days. 02/14 completed Not Available Not Available Not Available albuterol sulfate 1.25 mg/3 mL solution for nebulizatio n Inhale 3 mL every 4 hours by inhalatio n route as needed. 05/05 completed Not Available Not Available Not Available meloxicam 15 mg tablet Take 1 tablet every day by oral route after meals for 30 days. active Not Available Not Available No t Available Alcohol Pads Apply 1 pad every day by topical route as directed for 30 days. 04/25 completed Not Available Not Available Not Available lidocaine 4 % topical cream Apply 1 applicati on 4 times a day by topical route as needed for 30 days. 05/05 completed Not Available Not Available Not Available sulfamethox azole 800 mg-trimetho prim 160 mg tablet 05/05 completed Not Available Not Available Not Available triamcinolo ne acetonide 0.1 % topical cream APPLY A THIN LAYER TO THE AFFECTED AREA(S) BY TOPICAL ROUTE 2 TIMES PER DAY 2022 active Not Available Not Available Not Avai lable pantoprazol e 20 mg tablet,cameron yed release Take 1 tablet every day by oral route before meals for 30 days. 04/17 completed Not Available Not Available Not Available famotidine 20 mg tablet active Not Available Not Available Not Available OneTouch Ultra Test strips 02/14 completed Not Available Not Available Not Available baclofen 10 mg tablet Take 1 tablet 3 times a day by oral route as needed for 30 days. 05/05 completed Not Available Not Available Not Available erythromyci n 5 mg/gram (0.5 %) eye ointment 02/14 completed Not Available Not Available Not Available metformin 1,000 mg tablet active Not Available Not Available Not Available tobramycin 0.3 % eye drops INSTILL 1 DROP INTO AFFECTED EYE(S) BY OPHTHALMI C ROUTE EVERY 4 HOURS 05/05 completed Not Available Not Available Not Available ranitidine 150 mg tablet Take 1 tablet twice a day by oral route as directed for 30 days. 05/05 completed Not Available Not Available Not Available losartan 25 mg tablet Take 1 tablet every day by oral route as directed for 90 days. 07/23 completed Not Available Not Available Not Available montelukast 10 mg tablet active Not Available Not Available Not Available pravastatin 20 mg tablet Take 1 tablet every day by oral route at dinner for 30 days. 04/17 completed Not Available Not Available Not Available lisinopril 5 mg tablet active Not Available Not Available Not Available levofloxaci n 500 mg tablet 02/14 completed Not Available Not Available Not Available methylpredn isolone 4 mg tablets in a dose pack 02/14 completed Not Available Not Available Not Available albuterol sulfate HFA 90 mcg/actuati on aerosol inhaler Inhale 2 puffs every 4 hours by inhalatio n route as needed for 30 days. 2022 active Not Available Not Available Not Avai lable spironolact one 50 mg tablet Take 1 tablet(s) twice a day bu oral route 04/17 completed Not Available Not Available Not Available amoxicillin 500 mg-potassiu m clavulanate 125 mg tablet TAKE ONE TABLET EVERY TWELVE HOURS UNTIL ALL TAKEN active Not Available Not Available No t Available OneTouch UltraMini kit 05/05 completed Not Available Not Available Not Available Januvia 100 mg tablet TAKE 1 TABLET BY MOUTH EVERY DAY FOR DIABETES 04/28 completed Not Available Not Available Not Available Symbicort 160 mcg-4.5 mcg/actuati on HFA aerosol inhaler Inhale 2 puffs twice a day by inhalatio n route as directed for 30 days. 2022 active Not Available Not Available Not Avai lable Symbicort 80 mcg-4.5 mcg/actuati on HFA aerosol inhaler Inhale 2 puffs twice a day by inhalatio n route. 04/17 completed Not Available Not Available Not Available OneTouch Delica Lancets 33 gauge 04/25 completed Not Available Not Available Not Available Olinda Allergy 60 mg tablet Take 1 tablet twice a day by oral route as directed for 30 days. 2022 active Not Available Not Available Not Avai lable Tradjenta 5 mg tablet TAKE ONE TABLET BY MOUTH EVERY DAY 04/28 completed Not Available Not Available Not Available Nesina 25 mg tablet TAKE ONE TABLET BY MOUTH EVERY DAY FOR DIABETES active Not Available Not Available No t Available Farxiga 10 mg tablet Take 1 tablet every day by oral route for 30 days. 2022 active Not Available Not Available Not Avai lable OneTouch Ultra Blue Test Strip 04/25 completed Not Available Not Available Not Available Paxlovid 300 mg (150 mg x 2)-100 mg tablets in a dose pack Take 3 tablets twice a day by oral route as directed for 5 days. 06/23 completed Not Available Not Available Not Available Vitals Date Recorded Body height Body mass index (BMI) Body weight Oxygen saturation Oxygen saturation in Arterial blood by Pulse oximetry Heart rate Systolic blood pressure Diastolic blood pressure Provider Name and Address Organization Details Last Updated DateTime 3 161.29 cm 44.3 kg/m2 451215. 74 g 98 % 98 % 89 /min 132 mm[Hg] 72 mm[Hg] Veronica Parsons [place] [facility] 3 10:00:37 Date Recorded Body height Body mass index (BMI) Body weight Oxygen saturation Oxygen saturation in Arterial blood by Pulse oximetry Heart rate Systolic blood pressure Diastolic blood pressure Provider Name and Address Organization Details Last Updated DateTime 3 161.29 cm 45 kg/m2 051716. 26 g 98 % 98 % 82 /min 155 mm[Hg] 85 mm[Hg] Veronica Parsons [place] [facility] 3 10:23:48 Date Recorded Body height Body mass index (BMI) Body weight Systolic blood pressure Diastolic blood pressure Provider Name and Address Organization Details Last Updated DateTime 04/28/2023 161.29 cm 46 kg/m2 064316.3 9 g 138 mm[Hg] 76 mm[Hg] Samia Kaplan MA [facility] 3 08:37:58 Date Recorded Body height Body mass index (BMI) Body weight Heart rate Oxygen saturation Oxygen saturation in Arterial blood by Pulse oximetry Systolic blood pressure Diastolic blood pressure Provider Name and Address Organization Details Last Updated DateTime 3 161.29 cm 45.3 kg/m2 679304. 02 g 99 /min 94 % 94 % 142 mm[Hg] 68 mm[Hg] Susie Horton [place] [facility] 3 11:44:21 Social History Question Answer Notes LastModified by Organizat ion Details LastModified Time Tobacco Smoking Status Former Smoker quit 8-9 years ago Mireille Lux MA null, [place] - [facility] 09/05/2014 12:11:14 Do You Have An Advance Directive? No Information not available 05/04/2018 Is Blood Transfusion Acceptable In An Emergency? Yes Information not available 05/04/2018 What Is Your Level Of Caffeine Consumption? Moderate Information not available 05/04/2018 How Much Tobacco Do You Chew? None Information not available 05/04/2018 What Type Of Diet Are You Following? REGULAR Information not available 05/04/2018 Which Illicit Or Recreational Drugs Have You Used? None Information not available 05/04/2018 Education 12 Information no t available 05/04/2018 Live Alone Or With Others? With Others Information not available 05/04/2018 What Was The Date Of Your Most Recent Tobacco Screening? 06/23/2023 [email or web address] Information not available 06/23/2023 How Many Children Do You Have? 2 Information not available 05/04/2018 Performs Monthly Self-breast Exam? No Information not available 05/04/2018 What Is Your Relationship Status? Information not available 05/04/2018 Do You Use Your Seat Belt Or Car Seat Routinely? Yes Information not available 11/19/2021 Seat Belts Used Routinely Yes Information not available 05/04/2018 Are You Sexually Active? Yes Information not available 04/28/2023 Do You Have Smoke And Carbon Monoxide Detectors In Your Home? Yes Information not available 11/19/2021 At What Age Did You Start Smoking Tobacco? 29 Information not available 05/04/2018 Are You Passively Exposed To Smoke? No Information not available 04/28/2023 General Stress Level Low Information not available 05/04/2018 Do You Use Sunscreen Routinely? Yes Information not available 05/04/2018 Has Tobacco Cessation Counseling Been Provided? Yes Information not available 04/28/2023 On What Date Was Tobacco Cessation Counseling Provided? 04/28/2023 Information not available 04/28/2023 How Many Years Have You Smoked Tobacco? 15 [email or web address] Information not available 09/05/2014 Sex: Unknown Functional Status Question Answer Note LastModified by Organizat ion Details LastModified Time Do you use any illicit or recreational drugs? No Information not available 11/19/2021 Do you or have you ever used any other forms of tobacco or nicotine? No Information not available 11/19/2021 What is your level of alcohol consumption? Occasional Information not available 05/04/2018 Are you currently employed? 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 None Information not available 05/04/2018 Mental Status None recorded. Family History Relationship Description Onset Age of this Age Resolved Age Notes LastModified by Organization Details LastModified Time Father Diabetes mellitus [email or web address] Not available 2014 12:10:18 Father Hypercholest erolemia [email or web address] Not available 2014 12:10:18 Father Hypertensive disorder [email or web address] Not available 2014 12:10:18 Mother Diabetes mellitus [email or web address] Not available 2014 12:10:18 Mother Hypercholest erolemia [email or web address] Not available 2014 12:10:18 Mother Hypertensive disorder [email or web address] Not available 2014 12:10:18 Mother Migraine [email or web address] Not available 0 09/05/2014 12:10:18 Brother Diabetes mellitus [email or web address] Not available 2014 12:10:18 Sister Diabetes mellitus [email or web address] Not available 2014 12:10:18 Medical History Condition Response Other N High Blood Pressure N Breast Cancer N Thyroid Problems N Kidney or Bladder Problems N Lung Disease N COPD Y Blood Clots N Depression N GI Problems N Acne N Skin Problems Y Breast Problem N Eating Disorder N Anemia Y Anesthesia Complications N Headaches/Migraines N Ovarian Cancer N Diabetes Y Anxiety Disorder N Muscle, Joint, or Bone Problems N Blood Transfusions N Seizures/Epilepsy N Polyps N Infertility N Acid Reflux (GERD) Y Cancer N Abuse/Domestic Violence N Asthma Y Endometriosis N High Cholesterol N Hepatitis N Liver Disease N Heart Disease N Headaches Y Pre-Eclampsia N Osteoporosis N Gynecological History Statement/Question Response Date of Last Mammogram 01/20/2023 On BCP's at Conception? N STIs/STDs N HPV Vaccine N Age at Menarche 12 Current Control Method Tubal Ligat ion Age at First Child 23 Sexually Active? Y Menses Monthly N Date of Last Pap Smear 04/28/2023 Sexual Problems? N LMP Approximate Obstetrics History GPAL:G 3 P 2 0 1 2 Type Value Multiple Births 0 Full Term 2 Induced 1 Spontaneous 0 Premature 0 Living 2 Ectopics 0 Total 3 Immunizations Vaccine Type Date Status Note Provider Nam e and Address Organization Details Recorded Time COVID-19, mRNA, LNP-S, PF, 30 mcg/0.3 mL dose 1 completed Joseph Adler null, [place] - [facility] 02/05/2021 13:58:08 COVID-19, mRNA, LNP-S, PF, 30 mcg/0.3 mL dose 1 completed Joseph Adler [place], [place] [facility] 02/05/2021 13:58:26 Influenza, split virus, quadrivalent, preservative 8 completed Not Available [facility] 08/24/2019 02:39:20 Influenza, split virus, quadrivalent, preservative 1 completed Kiah Stevens MA null, [place] [facility] 10/28/2020 15:14:59 COVID-19, mRNA, LNP-S, PF, 30 mcg/0.3 mL dose, geovanni-sucrose 2 completed Mica Borjas LPN null, [place] [facility] 06/10/2022 11:39:54 Tdap 2 completed Pascale Polanco MD Attn: Accounting,[address] [facility], [place], [address], [facility] 06/10/2022 14:52:43 Influenza, split virus, quadrivalent, PF 3 completed DAMIR STARR Attn: Accounting,[address] [facility], [place], [address], [facility] 04/28/2023 14:14:15 COVID-19, mRNA, LNP-S, PF, 50 mcg/0.5 mL 3 completed Nimco Baron MA [facility], [place] - [facility] 07/14/2023 09:45:02 Influenza, split virus, quadrivalent, preservative 5 completed Not Available [facility] 08/24/2019 02:50:25 Past Encounters Encounter ID Performer Location Encounter Start Date Encounter Closed Date Diagnosis/Indication Diagnosis SNOMED-CT Code Diagnosis ICD10 Code Diagnosis Note [id number] Pascale Polanco MD [facility] (Adult Med) [address] [place] [address] [phone] 09/05/2014 11:34:55 09/05/2014 18:08:20 Chronic obstructive pulmonary disease 04107535 Ex-smoker 3464941 Morbid obesity 268773000 Chronic he adache disorder 769839562 Edema of l ower extremity 931319655 [id number] Pascale Polanco MD [facility] (Adult Med) [address] [place] [address] [phone] 10/10/2014 10:26:26 10/10/2014 12:32:04 Chronic obstructive pulmonary disease 33183075 Edema of l ower extremity 570302616 Ex-smoker 5611098 Morbid obesity 786811503 Metabolic syndrome X 929029717 Gastroesop hageal reflux disease 520666350 [id number] Pascale Polanco MD [facility] (Adult Med) [address] [place] [address] [phone] 0 05/27/2015 10:34:00 05/27/2015 12:01:35 Chronic obstructive pulmonary disease 74168374 J44.9 Edema of l ower extremity 311063241 R60.0 Gastroesop hageal reflux disease 471814029 K21.9 Metabolic syndrome X 237 082353 E88.81 Morbid obesity 810822369 E66.01 Administra tion of influenza vaccine 25322097 Z23 Screening mammography 24 264225 Z12.31 [id number] MD Kathy Austin (Adult Med) [address] [place] [address] [id number] 06/24/2015 12:31:50 06/24/2015 13:17:11 Diabetes mellitus 66774242 E13.65 Chronic ob structive pulmonary disease 46671818 J44.9 Ex-smoker 7933975 Z87.89 1 Gastroesop hageal reflux disease 048785412 K21.9 Calcificat ion of breast 635232994 R92.1 Morbid obesity 803989161 E66.01 Secondary hyperlipidemia 914664901 E78.5 [id number] Pascale Polanco MD [facility] (Adult Med) [address] [place] [address] [id number] 09/29/2015 12:12:13 09/29/2015 12:45:40 Diabetes mellitus 06892762 E13.65 Chronic ob structive pulmonary disease 85216237 J44.9 Edema of l ower extremity 690703282 R60.0 Ex-smoker 6927939 Z87.89 1 Gastroesop hageal reflux disease 231998062 K21.9 Pneumonia 927400275 J18. 9 Hyperlipidemia 98779369 E78.5 [id number] Pascale Polanco MD [facility] (Adult Med) [address] [place] [address] [phone] 0 12/29/2015 10:14:27 12/29/2015 11:45:29 Diabetes mellitus 17941347 E13.65 Ex-smoker 9067565 Z87.89 1 Gastroesop hageal reflux disease 322524725 K21.9 Chronic ob structive pulmonary disease 73108089 J44.9 Hyperlipidemia 47621155 E78.5 Edema of l ower extremity 760682481 R60.0 Microalbum inuric diabetic nephropathy 071436977 E11.21 Morbid obesity 976704192 E66.01 [id number] Pascale Polanco MD [facility] (Adult Med) [address] [place] [address] [phone] 0 03/29/2016 10:16:12 03/29/2016 18:06:34 Diabetes mellitus 88923483 E13.65 Chronic ob structive pulmonary disease 53442394 J44.9 Edema of l ower extremity 870996370 R60.0 Ex-smoker 1849854 Z87.89 1 Gastroesop hageal reflux disease 949647283 K21.9 Hyperlipidemia 95970185 E78.5 Metabolic syndrome X 237 390248 E88.81 Morbid obesity 393509400 E66.01 Microalbum inuric diabetic nephropathy 979377042 E11.21 [id number] Pascale Polanco MD [facility] (Adult Med) [address] [place] [address] [id number] 0 02/14/2018 17:19:46 02/14/2018 18:24:18 Type 2 diabetes mellitus without complication 920152179 E11.9 She has not been in this office for about 2 years and also ran out the medication . Acid reflux 355438991 K2 1.9 Edema of l ower extremity 779880996 R60.0 She has off and off of water retension , asking water pill. Morbid obesity 359840024 E66.01 Diet, exercise and lose weight. [id number] Pascale Polanco MD [facility] (Adult Med) [address] [place] [address] [phone] 0 04/17/2018 16:01:48 04/17/2018 17:13:59 Uncontrolled type 2 diabetes mellitus 207133043 E11.65 Diabetic diet, exercise and lose weight , she had annular eye ex. Chronic ob structive pulmonary disease 18917860 J44.9 Type 2 shavon betes mellitus without complication 475999050 E11.9 She has not been in this office for about 2 years and also ran out the medication . Screening mammography 24 206988 Z12.31 Screening for malignant neoplasm of colon 899015291 Z12.11 Patient refuses. Screening for malignant neoplasm of cervix 411985519 Z12.4 [id number] MD Kathy Olmstead (TRIMMER HELPER) [address] [place] [address] [phone] 05/04/2018 11:16:37 05/04/2018 13:04:28 Gynecologic examination 74745215 Z01.411 Age appropriat e counseling done. Abnormal u terine bleeding 8222556675 9100 N93.9 counseled about causes, risks of it. offered endometria l biopsy and counseled about procedure. she verbalized understand ing and she agrees for it. she wanted to come back for it. advised to take pain medication like tylenol 1-2 hrs before she come in for endometria l biopsy. Urine test negative in office today. Venereal d isease screening 274927398 Z11.3 Patient refused blood work for STD's. Administra tion of influenza vaccine 65658528 Z23 [id number] MD Kathy Olmstead (TRIMMER HELPER) [address] [place] [address] [phone] 05/28/2018 15:22:52 05/28/2018 17:28:38 Abnormal uterine bleeding 7661413759 9100 N93.9 D/W patient lab work, PAP, nuswab, TVUS result. counseled about causes, risks of it. offered endometria l biopsy and counseled about procedure. Counseled about the procedure and its risks including infection, bleeding, damage to internal organs, indicated procedures . Patient verbalized understand ing. Consent signed which is in chart. Refer to procedure note. Advised patient to go to ER if bleeding more than a pad per hour, fever > 100.4, and severe pain. She verbalized understand ing. Uterine leiomyoma 136453 05 D25.9 COUNSELED ABOUT IT. Patient refused medical management or surgical management at this time. Hemoglobin A1c between 7 percent to 10 percent indicating borderline diabetic control 987764092 E11.9 ADVISED TO F/U WITH PCP. Hypercholesterolemia 136 88640 E78.00 ADVISED TO F/U WITH PCP.. [id number] MD Kathy Austin (Adult Med) [address] [place] [address] [phone] 07/17/2018 16:35:02 07/17/2018 18:27:17 Chronic obstructive pulmonary disease 47195728 J44.9 Type 2 shavon betes mellitus 26094397 E11.9 Blood sugar is 152 mg%. Uncontroll ed type 2 diabetes mellitus 471969647 E11.65 Diabetic diet, exercise and lose weight , she had annular eye ex. Type 2 shavon betes mellitus without complication 767366989 E11.9 She has not been in this office for about 2 years and also ran out the medication . Diabetic diet, exercise and lose weight. Dyslipidem ia due to type 2 diabetes mellitus 5461591502 02 E78.5 Edema of l ower extremity 378078895 R60.0 She has off and off of water retension , asking water pill. [id number] MD Kathy Austin (Adult Med) [address] [place] [address] [phone] 09/25/2018 14:05:37 09/26/2018 12:28:56 Acute conjunctivitis 42373390 H10.32 Pt advised to call office in 2-3 days for progress, optional opthamolog ist referral. Pain of le ft shoulder joint [id number] 4748464 M25.512 Discussed with pt she agreed to try medication w/ optional x ray and referral per Dr. Polanco [id number] MD Kathy Austin (Adult Med) [address] [place] [address] [phone] 05/05/2020 08:20:35 05/06/2020 08:27:06 Chronic obstructive pulmonary disease 11119999 J44.9 Stable, she will let this office know about her inhaler of maintenanc e. Diabetes mellitus 255893 09 E13.65 Diabetic diet, exercise and keep the weight down.. Edema of l ower extremity 431493191 R60.0 She has off and off of water retension , asking water pill. Gastroesop hageal reflux disease 654309552 K21.9 Has D/C ranitidine , will change to famotidine instead. Hyperlipidemia 96419640 E78.5 Low animal fat diet. Metabolic syndrome X 237 089761 E88.81 Diet, exercise lose weight . Microalbum inuric diabetic nephropathy 749704088 E11.21 Stable. Dyslipidem ia due to type 2 diabetes mellitus 5134255697 02 E78.5 Low animal fat diet. Type 2 shavon betes mellitus without complication 622304560 E11.9 She has not been in this office for about 2 years and also ran out the medication . Diabetic diet, exercise and lose weight. [id number] MD Kathy Austin (Adult Med) [address] [place] [address] [phone] 0 10/28/2020 14:18:23 10/29/2020 10:40:08 Chronic obstructive pulmonary disease 49166580 J44.9 Stable, she will let this office know about her inhaler of maintenanc e. Diabetes mellitus 053512 09 E13.65 Diabetic diet, exercise and keep the weight down.. Edema of l ower extremity 993556729 R60.0 She has off and off of water retension , asking water pill. Gastroesop hageal reflux disease 875451384 K21.9 Has D/C ranitidine , will change to famotidine instead. Hyperlipidemia 91574531 E78.5 Low animal fat diet. Microalbum inuric diabetic nephropathy 648666819 E11.21 Stable. Morbid obesity 215987028 E66.01 Diet, exercise and lose weight. Type 2 shavon betes mellitus without complication 222923030 E11.9 She has not been in this office for about 2 years and also ran out the medication . Diabetic diet, exercise and lose weight. Administra tion of influenza vaccine 08785474 Z23 Not sick today, no previous allergy. 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 Skin lesion 76476452 L98 .9 Left elbow, about egg size, soft , will refer to plastic surgeon . Getting bigger, under the skin. She lives [facility] [place]. [id number] MD Kathy Austin (Adult Med) [address] [place] [address] [phone] 04/02/2021 09:39:36 04/07/2021 17:06:13 Diabetes mellitus 56130338 E13.65 Diabetic diet, exercise and keep the weight down.. Chronic ob structive pulmonary disease 42426109 J44.9 Stable, she will let this office know about her inhaler of maintenanc e. Edema of l ower extremity 675699425 R60.0 She has off and off of water retension , asking water pill. Gastroesop hageal reflux disease 015370043 K21.9 Has D/C ranitidine , will change to famotidine instead. Hyperlipidemia 84199159 E78.5 Low animal fat diet. Metabolic syndrome X 237 582982 E88.81 Diet, exercise lose weight . Microalbum inuric diabetic nephropathy 662747038 E11.21 Stable. Type 2 shavon betes mellitus without complication 199606488 E11.9 She has not been in this office for about 2 years and also ran out the medication . Diabetic diet, exercise and lose weight. [id number] Pascale Polanco MD [facility] (Adult Med) [address] [place] [address] [phone] 07/23/2021 10:04:46 07/26/2021 13:18:31 Chronic obstructive pulmonary disease 39857167 J44.9 Stable, she will let this office know about her inhaler of maintenanc e. Diabetes mellitus 488555 09 E13.65 Diabetic diet, exercise and keep the weight down.. Edema of l ower extremity 324569214 R60.0 She has off and off of water retension , asking water pill. Gastroesop hageal reflux disease 252900378 K21.9 Has D/C ranitidine , will change to famotidine instead. Hyperlipidemia 40334782 E78.5 Low animal fat diet. Low animal fat diet. Metabolic syndrome X 237 027715 E88.81 Diet, exercise lose weight . She has lost about Microalbum inuric diabetic nephropathy 158670333 E11.21 Stable.Als o hopefully will bring down blood pressure to the goal as well. Below 130/80 mm Hg. Morbid obesity 712694873 E66.01 Diet, exercise and lose weight. Has lost about 62 pounds since 2014. Type 2 shavon betes mellitus without complication 885417836 E11.9 She has not been in this office for about 2 years and also ran out the medication . Diabetic diet, exercise and lose weight. [id number] [facility] [address] [place] [address] [phone] 0 11/19/2021 10:39:27 11/19/2021 11:05:23 Morbid obesity 331597876 E66.01 Diet, exercise and lose weight. Has lost about 62 pounds since 2014. Microalbum inuric diabetic nephropathy 001340046 E11.21 Stable.Als o hopefully will bring down blood pressure to the goal as well. Below 130/80 mm Hg. Metabolic syndrome X 237 240334 E88.81 Diet, exercise lose weight . She has lost about 62 pounds since 2015. Gastroesop hageal reflux disease 853997297 K21.9 Has D/C ranitidine , will change to famotidine instead. Edema of l ower extremity 822298222 R60.0 She has off and on of water retension , asking water pill. Diabetes mellitus 706169 09 E13.65 Diabetic diet, exercise and keep the weight down.. Chronic ob structive pulmonary disease 20657642 J44.9 Stable, she will let this office know about her inhaler of maintenanc e. Screening mammography 24 751989 Z12.31 SHE REFUSES, Screening for malignant neoplasm of colon 240328357 Z12.11 Patient refuses. Screening for malignant neoplasm of respiratory tract 175199412 Z12.2 PATIENT REFUSES. [id number] MD Kathy Austin (Adult Med) [address] [place] [address] [phone] 03/18/2022 11:10:22 03/22/2022 09:16:57 COVID-19 657675011 U07.1 Discussed with patient, she is willing to try med as ordered. home quarantine for at least 5-7 days. Might experience metallic tast. [id number] MD Kathy Austin (Adult Med) [address] [place] [address] [phone] 06/10/2022 10:20:44 06/13/2022 13:23:01 Diabetes mellitus 44542434 E13.65 Diabetic diet, exercise and keep the weight down.. She will try current med for q while before making change. Administra tion of diphtheria, pertussis, and tetanus vaccine 988536712 Z23 She tolerated shot well. Screening mammography 24 004897 Z12.31 SHE agreed today 06-10-2022 . [id number] DAMIR IVORY (Peds) [address] [place] [address] [phone] 06/10/2022 11:08:06 06/21/2022 09:08:57 Administration of SARS-CoV-2 mRNA vaccine 2249154945 Z23 [id number] MD Kathy Austin (Adult Med) [address] [place] [address] [phone] 09/16/2022 09:45:51 09/20/2022 13:52:15 Morbid obesity 836104638 E66.01 Diet, exercise and lose weight. Has lost about 62 pounds since 2014. Xerosis du e to atopic dermatitis 321503384 L85.3 itching on the right forearm. probabaly due to xerosis. She agreed for the med to try as needed. Chronic ob structive pulmonary disease 11736391 J44.9 Stable, she will let this office know about her inhaler of maintenanc e. Diabetes mellitus 529464 09 E13.65 Diabetic diet, exercise and keep the weight down.. She will try current med for q while before making change. Edema of l ower extremity 784568183 R60.0 She has off and on ofwater retension , asking water pill. On furosemide as needed. Gastroesop hageal reflux disease 919538081 K21.9 Has D/C ranitidine , will change to famotidine instead. Hyperlipidemia 94501281 E78.5 Low animal fat diet. Low animal fat diet. On atorvastat in. Screening mammography 24 371417 Z12.31 SHE agreed today 06-10-2022 . [id number] [facility] [address] [place] [address] [phone] 02/10/2023 10:08:41 02/13/2023 16:39:23 Type 2 diabetes mellitus 77419717 E11.9 Blood sugar is 152 mg%.. Med refills. Chronic ob structive pulmonary disease 50367695 J44.9 Stable, she will let this office know about her inhaler of maintenanc e. Diabetes mellitus 552155 09 E13.65 Diabetic diet, exercise and keep the weight down.. She will try current med for q while before making change. Hyperlipidemia 13646982 E78.5 Low animal fat diet. Low animal fat diet. On atorvastat in. Microalbum inuric diabetic nephropathy 977741912 E11.21 Stable.Als o hopefully will bring down blood pressure to the goal as well. Below 130/80 mm Hg. Gastroesop hageal reflux disease 412151825 K21.9 Has D/C ranitidine , will change to famotidine instead. Edema of l ower extremity 329735277 R60.0 She has off and on ofwater retension , asking water pill. On furosemide as needed. Only on the right leg/foot. Type 2 shavon betes mellitus without complication 169733750 E11.9 She has not been in this office for about 2 years and also ran out the medication . Diabetic diet, exercise and lose weight. Renewal of prescription 581505439 Z76.0 Screening for malignant neoplasm of cervix 486909953 Z12.4 She agreed for the screening. HIV screen ing declined 8296746532 63024 Z53.20 She declined 02-10-23. [id number] DAMIR STARR (TRIMMER HELPER) [address] [place] [address] [phone] 0 04/28/2023 08:22:16 05/03/2023 16:04:00 Screening for malignant neoplasm of colon 567776561 Z12.11 Pt never had colonoscop y previously , agreeable to cologuard. Gynecologi c examination 79518378 Z01.419 Cervical cancer screening: Last Pap 2017 NILM/HPV neg, updated todayBreas t cancer screening: Last mammogram 01/20/23 BIRADS 2Colonosco py: dueDiet/ex ercise: Counseled regarding importance of physical activity, healthy diet and appropriat e calcium intake.RTC in 1yr Morbid obesity 539717023 E66.01 BMI 46 Administra tion of influenza vaccine 78946359 Z23 [id number] [facility] [address] [place] [address] [id number] 06/23/2023 11:34:02 06/27/2023 16:19:39 Acute sinusitis 94472233 J01.90 Discussed with patient. d=she agreed to try med as ordered. Diabetes mellitus 798768 09 E13.65 Diabetic diet, exercise and keep the weight down.. She will try current med for q while before making change. On farxiga, metformin and pioglitazo ne She will find a endocrinol ogist on this side of accord, and let this office know, then we will make referral. 06-23-23. Edema of l ower extremity 803145578 R60.0 She has off and on ofwater retension , asking water pill. On furosemide as needed. Only on the right leg/foot. Gastroesop hageal reflux disease 733676254 K21.9 Has D/C ranitidine , will change to famotidine instead. Hyperlipidemia 89866329 E78.5 Low animal fat diet. Low animal fat diet. On atorvastat in. Microalbum inuric diabetic nephropathy 959572129 E11.21 Stable.Als o hopefully will bring down blood pressure to the goal as well. Below 130/80 mm Hg. On lisinopril . Morbid obesity 882060275 E66.01 Diet, exercise and lose weight. Has lost about 62 pounds since 2014. BMI is 45.3 today 06-23-23. HIV screen ing declined 1529948108 77972 Z53.20 She declined 02-10-23. She declined today 06-23-23. [id number] DAMIR IVORY (Peds) [address] [place] [address] [phone] 07/14/2023 09:18:39 07/17/2023 09:21:05 Administration of SARS-CoV-2 mRNA vaccine 0335238492 Z23 Health Concerns Section Related Observation LastModified by Organization Detai ls LastModified Time None Recorded Concern Status LastModified by Organization Details LastModified Time None Recorded Advance Directives Directive N: Payers Insurance Date Sequence Insurance Name Policy Number Policy Quinteros Covered Member ID Quinteros Member ID Guarantor Name 10/17/2023 1 [place] [id number] Ebony Velasquez [id number] Ebony Velasquez 11/13/2018 1 [facility] - DOS PRIOR TO 2021 (MEDICAID REPLACEMENT - HMO) Ebony Velasquez [id number] Ebony Velasquez 09/25/2018 1 [facility] (MEDICAID HMO) Ebony Velasquez [id number] Ebony Velasquez 11/02/2020 1 *SELF PAY* Damir Velasquez Notes Date Note Type Note Provider Name and Address Organization Details Recorded Time 09/16/2022 text/html Office visit, allergic to Aleve. has enough med. Also itching on fore arm. Pascale Polanco MD Attn: Accounting[address] [place], [address], [place] [facility] 09/16/2022 10:44:26 02/10/2023 text/html Office visit, allergic to Aleve, . History of type 2 DM. COPD. , dyslipidemia. and chronic edema of right leg since she had infection years ago. Med refills.came with . Pascale Polanco MD Attn: Accounting[address] [place], [address], [facility] 02/10/2023 11:47:00 04/28/2023 text/html Annual GYNReport ed bypatient.Menstrua l cycle:Perimenopaus al Urinary symptoms:No hematuria; No incontinence Vulva:No genital lesion Vagina:Normal vaginal discharge Breast:No breast pain; No breast lump; No nipple discharge Sexual complaints:No sexual complaints; No pain during intercourse; Normal libido Menopausal Symptoms:No menopausal symptoms; Normal vaginal lubrication Psychological symptoms:No depression; No anxiety; No PMDD Preventive measures:Encourage self breast examination; Encourage regular exercise; Encourage no tobacco use; Followed with Q3 year pap smear and high risk HPV typing; Mammogram performed within the past year; Needs to schedule colonoscopy 57 y/o female coming in for annual [employer]. Last pap smear was back in 2018. Pt believes she has had abnormal paps before but unsure what the results were. Had LEEP procedure approx 20 years ago. She is pelon-menopausal, has not had normal periods in over a year with occasional spotting. Denies hot flashes, discharge, pelvic/abdominal pain. DAMIR STARR Attn: Accounting[address] [place], [address], [place] [facility] 04/28/2023 14:42:31 06/23/2023 text/html Office visit, allergic to aleve, type 2 DM. has enough med refills. C.\/C sinus congested, hard to breathe thru. No fever, no chest pain, no other complaints. ROS as noted in HPI. Pascale Polanco MD Attn: [address] [place], [address], [place] - [facility] 06/23/2023 12:10:33 OBGyn Episode Ob Episode Information Episode Created Date Number of Fetuses Patient Bloodtype Patient rh Status Prepregnancy Weight lbs Domestic Partner Domestic Partner Phone Father Name Gerontology Aide Status 05/04/20 18 1 CLOSED Fetus Data First Name Last Name Admitted to NICU Weight (g) Sex Living Outcome Pediatric Complications Fetus ID Race Codes Race Delivery Type 4365.82 3 M Full Term [id number] Vaginal Earl Calculation Initial Earl Date Initial Exam Date Initial Exam Provider Initial Ultrasound Date Last Menstrual Period Date Ultra Sound Weeks Gestation 0 Eighteen To Twenty Week Earl Update Ultra Sound Date Fundal Height At Umbil Quickening Date Ultra Sound Latest Weeks Gestation Final Earl Confirmed By Final Earl Confirmed Date Final Earl Date Ultra Sound Latest Days Gestation 0 0 Menstrual History Last Menstrual Date Menses Monthly On Bcp Conception Prior Menses Frequency Hcg Plus Date Menarche Onset Age Delivery Information Delivery Date Delivery Type Labor Anesthesia Weeks Gestation Incision Type Labor Labor Length Hrs Delivered By Post Complications Tubal Sterilization Discharge Date Comments 5 Regional-Sp inal 40 false Discharge Information Feeding Method Contraceptive Method Maternal HG B and HCT Levels Ob Episode Information Episode Created Date Number of Fetuses Patient Bloodtype Patient rh Status Prepregnancy Weight lbs Domestic Partner Domestic Partner Phone Father Name Gerontology Aide Status 05/04/20 18 1 CLOSED Fetus Data First Name Last Name Admitted to NICU Weight (g) Sex Living Outcome Pediatric Complications Fetus ID Race Codes Race Delivery Type 4195.72 6 M Full Term [id number] Vaginal Earl Calculation Initial Earl Date Initial Exam Date Initial Exam Provider Initial Ultrasound Date Last Menstrual Period Date Ultra Sound Weeks Gestation 0 Eighteen To Twenty Week Earl Update Ultra Sound Date Fundal Height At Umbil Quickening Date Ultra Sound Latest Weeks Gestation Final Earl Confirmed By Final Earl Confirmed Date Final Earl Date Ultra Sound Latest Days Gestation 0 0 Menstrual History Last Menstrual Date Menses Monthly On Bcp Conception Prior Menses Frequency Hcg Plus Date Menarche Onset Age Delivery Information Delivery Date Delivery Type Labor Anesthesia Weeks Gestation Incision Type Labor Labor Length Hrs Delivered By Post Complications Tubal Sterilization Discharge Date Comments 9 None 40 false Baby was born in [place] Discharge Information Feeding Method Contraceptive Method Maternal HG B and HCT Levels
--- OUTSIDE RECORDS SUMMARY | 2025-01-23 12:28 | XMS_ITS | CONTINUITY OF CARE DOCUMENT ---
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
== END 2025-01-23 11:41 | disposition home or self-care (01) ==
LOC: CHSIMG 11:41
PROVIDERS: PCP Family Medicine; Visit Provider Nurse Practitioner Family
DX: Z12.31 Encounter for screening mammogram for malignant neoplasm of breast (principal); Z78.0 Asymptomatic menopausal state
CPT/HCPCS: 77063; 77067; 77080

== ENCOUNTER 2025-07-21 17:15 | Outpatient (CLI) | payer OTHER, SELFPAY ==
--- NOTE | ~2025-07-21 | XR_ITS ---
EXAMINATION: XR shoulder LT min 2V, 07/21/2025 17:23 [employer] SAL[employer]ER HISTORY: Left shoulder pain COMPARISON: No comparisons available. Findings: No acute fracture or malalignment. Minimal degenerative changes with minimal calcific tendinopathy Soft tissues unremarkable. Impression: No acute fracture or malalignment. Reviewed, dictated and finalized at location P. 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
--- OUTSIDE RECORDS SUMMARY | 2025-07-21 18:27 | XMS_ITS | Data Portability ---
Author Organization [facility] Nidhi Burnett Address [address] [facility] [place] [id number] Care Team Providers Care Or Manager Name Role Phone COLLINJOSELITOALANIS Primary Care Provider [phone] MIRIAM TRAN Train Examiner [phone] Assessment No assessment recorded. Plan of Treatment Reminders Order Date Submit Date Provider Last Modified By Organization Details Last Modified Time Details Appointments None recorded . Lab pap, IG + reflex HPV 2022 023 LAUREN [facility], [address], [address], [address], 3 16:13:48 noninvas rock colorect al cancer DNA + occult blood screenin g, QL, stool 2022 023 [facility], [address], [address], [place], [address], 4 17:00:45 HbA1c (hemoglo bin A1c), blood [address] [facility] In-Office Order, Internal Use Only DO Not Attach Compendium DO Not Attach Compendium, Do Not Delete/merge, [id number] 3 11:45:42 Referral gynecolo gist referral - Please call patient for praneeth bosch1 2022 023 bert LOPEZ, [facility] [place], [address], 3 13:05:03 diabetic ophthalm ology referral - Please call patient for the millie segura thanks! 2022 023 [email or web address] [employer], [address], [place], [address], 3 10:59:59 Procedures None recorded . Surgeries None recorded . Imaging MAMMO, screenin g, bilatera l 2022 023 [facility] (Mammography) , [address], [place], [address], 3 15:52:25 Medication Orders amoxicil marie 500 mg-potas sium clavulan ate 125 mg tablet 2022 023 [facility], [address] [place] [address], [id number], 3 12:43:18 Olinda Allergy 60 mg tablet 2022 023 [facility], [address] [place] [address], [id number], 3 12:13:06 monteluk ast 10 mg tablet 2022 023 [facility], [address] [place] [address], [id number], 4 09:33:52 famotidi ne 20 mg tablet 2022 023 [facility], [address] [place] [address], [id number], 4 09:31:56 Nesina 25 mg tablet 2022 023 [facility], [address] [place] [address], [id number], 3 16:36:04 albutero l sulfate 2.5 mg/3 mL (0.083 %) solution for nebuliza tion 2022 023 [facility], [address] [place] [address], [id number], 3 11:51:33 albutero l sulfate HFA 90 mcg/actu ation aerosol inhaler 2022 023 [facility], [address] [place] [address], [id number], 3 11:51:35 Symbicor t 160 mcg-4.5 mcg/actu ation HFA aerosol inhaler 2022 023 [facility], [address] [place] [address], [id number], 3 11:51:33 atorvast atin 10 mg tablet 2022 023 [facility], [address] [place] [address], [id number], 4 09:31:59 lisinopr il 5 mg tablet 2022 023 [facility], [address] [place] [address], [id number], 4 09:31:59 furosemi de 40 mg tablet 2022 023 [facility], [address] [place] [address], [id number], 4 09:31:56 metformi n 1,000 mg tablet 2022 023 [facility], [address] [place] [address], [id number], 4 09:31:56 pioglita zone 15 mg tablet 2022 023 [facility], [address] [place] [address], [id number], 4 09:31:58 triamcin olone acetonid e 0.1 % topical cream 2022 023 [facility], [address] [place] [address], [id number], 10:42:10 Patient TargetsNo targets recorded. Patient Instructions Encounter Date Encounter Id Patient Instructions Last Modified By Organization Details Last Modified Time 09/16/2022 [id number] mammogram: about this test [facility] Not available 09/16/2022 10:42:11 A healthy lifest yle: care instructions [facility] Not available 09/16/2022 10:42:10 gastroesophageal reflux disease (GERD): care instructions [facility] Not available 09/16/2022 10:42:11 chronic obstruct rock pulmonary disease (COPD): care instructions [facility] Not available 09/16/2022 10:42:10 learning about c opd and how to prevent lung infections [facility] Not available 09/16/2022 10:42:10 high cholesterol : care instructions [facility] Not available 09/16/2022 10:42:11 leg and ankle ed sebastian: care instructions [facility] Not available 09/16/2022 10:42:11 02/10/2023 [id number] learning about t ype [address] [facility] Not available 02/10/2023 11:45:42 type 2 diabetes: care instructions [facility] Not available 02/10/2023 11:45:42 chronic obstruct rock pulmonary disease (COPD): care instructions [facility] Not available 02/10/2023 11:45:41 learning about c opd and how to prevent lung infections [facility] Not available 02/10/2023 11:45:42 high cholesterol : care instructions [facility] Not available 02/10/2023 11:45:42 04/28/2023 [id number] well visit, wome n 50 to 65: care instructions Not available 04/28/2023 09:04:26 A healthy lifest yle: care instructions Not available 04/28/2023 09:04:26 Naye Fernandez Discussed with NOAH Larios Not available 04/28/2023 14:40:39 06/23/2023 [id number] leg and ankle ed sebastian: care instructions jhsieh Not available 06/23/2023 12:09:55 Acute Sinusitis: Care Instructions sieh Not available 06/23/2023 11:58:29 When You Want to Lose Weight: Care Instructions jhsieh Not available 06/23/2023 12:09:55 gastroesophageal reflux disease (GERD): care instructions jhsieh Not available 06/23/2023 12:09:55 high cholesterol : care instructions jhsieh Not available 06/23/2023 12:09:55 Reason for Referral Diabetic Ophthalmology Refer ral for Diabetes mellitus Please call patient for the appointment, thanks! Referring Physician: Pascale Restrepo, Internal Medicine, Encounter Date: 09/16/2022 Owner Manager Referral for Sc reening for malignant neoplasm of cervix Please call patient for appointment, thanks1 Referring Physician: Pascale Restrepo, Internal Medicine, Encounter Date: 02/10/2023 Results Created Date Observation Date Name Description Value Unit Range Abnormal Flag Note LastModifiedBy Organization Detail LastModifiedTime 04/27/20 24 04/27/2024 COLOG UARD cologuard result Cancel led - Order d not applic able Not Available [facility] [address], [place], [address], 04/27/2024 08:17:20 02/11/20 23 02/10/2023 HbA1c (hemo globi n A1c), blood HbA1c 8.6% Not Available In-Office Order Internal Use Only DO Not Attach Compendium DO Not Attach Compendium, Do Not Delete/merge, [id number] 02/10/2023 10:59:37 04/28/2005/01/2023 IGP,A PTIMA HPV,A GE GDLN age gdln acog testing 30-65 Not Available [facility] ([facility]) [address], [place], [address], 05/02/2023 16:13:48 04/28/20 23 05/02/2023 IGP, APTIM A HPV, RFX 16/18 ,45 diagnosis: Commen t NEGAT ROCK FOR INTRA EPITH ELIAL BEAU Cisse OR PATI WASSERMAN . Not Available [facility] ([facility]) [address] [place], [address], 05/02/2023 16:13:49 04/28/20 23 05/02/2023 IGP, APTIM A HPV, RFX 16/18 ,45 specimen adequacy: Paige jackson Satis facto ry for evalu ation . Endoc ervic al and/o r squam ous metap lasti c cells (endo cervi scarlett compo nent) are prese nt. Not Available [facility] ([facility]) [address] [place], [address], 05/02/2023 16:13:49 04/28/20 23 05/02/2023 IGP, APTIM A HPV, RFX 16/18 ,45 clinician provided ICD10: Paige jackson Z01.4 19 Not Available [facility] ([facility]) [address] [place], [address], 05/02/2023 16:13:49 04/28/20 23 05/02/2023 IGP, APTIM A HPV, RFX 16/18 ,45 performed by: Kathi Arzate (ASCP ) Not Available [facility] ([facility]) [address] [place], [address], 05/02/2023 16:13:49 04/28/20 23 05/02/2023 IGP, APTIM A HPV, RFX 16/18 ,45 . . Not Available [facility] ([facility]) [address] [place], [address], 05/02/2023 16:13:49 04/28/20 23 05/02/2023 IGP, APTIM A HPV, RFX 16/18 ,45 note: Paige jackson The Pap smear is a scree larisa test desnorah velázquez to aid in the detec tion of ayse ligna nt and malnorah mac condi tions of the uteri ne cervi x. It is not a diagn ostic proce dure and shoul d not be used as the sole means of detec ting cervi scarlett cance r. Both false -posi tive and false -nega tive repor ts do occur . Not Available [facility] ([facility]) [address] [place], [address], 05/02/2023 16:13:49 04/28/2005/02/2023 IGP, APTIM A HPV, RFX 16/18 ,45 test methodology: Commen t This liqui d based ThinP rep(R ) pap test was rhoda velázquez with the use of an image guide cj fregoso. Not Available [facility] ([facility]) [address] [facility], [place], [address], 05/02/2023 16:13:49 04/28/2005/02/2023 IGP, APTIM A HPV, RFX 16/18 ,45 HPV aptima Negati ve negati ve This nucle ic acid ampli ficat ion test detec ts fourt een high- risk HPV types (16,1 8,31, 33,35 ,39,4 5,51, 52,56 ,58,5 9,66, 68) witho ut diffe renti ation . Not Available [facility] ([facility]) [address] [facility], [place], [address], 05/02/2023 16:13:49 04/28/2005/02/2023 IGP, APTIM A HPV, RFX 16/18 ,45 HPV genotype reflex Commen t Crite mitzi not met, HPV Genot ype not perfo rmed. Not Available [facility] ([facility]) [address] [place], [address], 05/02/2023 16:13:49 01/21/20 23 01/20/2023 MAMMO , scree larisa, bilat eral No observ ation record ed. [email or web address] [address], [place], [address], 01/24/2023 09:05:19 Result Notes None recorded. Problems Name Problem SNOMED Code Status Onset Date Resolution Date Notes Provider Name and Address Organization Details Recorded Time Headache 90753318 Active Mireille Lux [place] null, [place] [facility] 5 12:12:46 Chronic obstructive pulmonary disease 72508010 Active Pascale Restrepo MD Attn: Latanya potts,[address] [place], [address], [place] [facility] 6 12:34:52 Morbid obesity 919899922 Active Pascale Restrepo MD Attn: Latanya g,[address] [place], [address], [place] [facility] 6 12:34:52 Chronic headache disorder 907482394 Active Pascale Restrepo MD Attn: Latanya g,[address] [place], [address], [place] [facility] 5 12:31:58 Edema of lower extremity 602282019 Active Pascale Restrepo MD Attn: Latanya g,[address] [facility], [place], [address], [place] [facility] 6 12:34:52 Metabolic syndrome X 470833256 Active Pascale Restrepo MD Attn: Latanya g,[address] [place], [address], [place] [facility] 6 12:34:52 Gastroesophage al reflux disease 282965254 Active Pascale Restrepo MD Attn: Latanya g,[address] [facility], [place], [address], [place] [facility] 6 12:34:52 Calcification of breast 587022143 Active Pascale Restrepo MD Attn: Latanya g,[address] [facility], [place], [address], [place] [facility] 5 13:18:36 Mammography abnormal 182134739 Active Jazzy Stern LPN null, [place] [facility] 5 15:24:18 Diabetes mellitus 68119271 Active Pascale Restrepo MD Attn: Latanya potts,[address] [facility], [place], [address], [place] [facility] 6 12:34:52 Secondary hyperlipidemia 630308014 Active Pascale Restrepo MD Attn: Accountluis manuel g,[address] [facility], [place], [address], [place] [facility] 5 13:18:36 Pneumonia 268343299 Active Pascale Restrepo MD Attn: Accountluis manuel g,[address] [facility], [place], [address], [place] [facility] 6 12:45:07 Hyperlipidemia 72500348 Active Pascale Restrepo MD Attn: Accountluis manuel g,[address] [facility], [place], [address], [place] [facility] 6 12:34:52 Microalbuminur ic diabetic nephropathy 648323039 Active Pascale Restrepo MD Attn: Accountluis manuel g,[address] [facility], [place], [address], [place] [facility] 6 12:34:52 Problem Notes None recorded. Procedures Surgical History Date Name Laterality Status Provider Name and Address Organization Details Recorded Time 023 Date of Last Pap Smear completed Samia Kaplan MA ID - [facility] 04/28/2023 08:32:26 023 Date of Last Mammogram completed Samia Kaplan MA ID - [facility] 04/25/2023 12:49:22 018 Endometrial Biopsy completed Dayanna Schwarz MD Attn: Accounting,[address] [facility], [place], [address], [place] - [place] 05/28/2018 17:06:43 999 LEEP completed Mireille Lux MA ID - SI 09/05/2014 12:08:22 [id number] Gastrointestinal Surgery completed JAMAL Maldonado - [facility] 09/05/2014 12:08:22 Dilation and Curettage completed Mireille Lux MA [facility] SI 09/05/2014 12:08:22 Tubal Ligation completed Mireille Lux MA [facility] SI 09/05/2014 12:08:22 Imaging Results None recorded. Procedure Notes None recorded. Medical Equipment None Reported. Allergies Allergen ID Allergen Name Allergen Category Reaction Reaction Severity Criticality Documentation Date Start Date Code Code System Note Provider Name and Address Organization Details Recorded Time Aleve medicatio n hives severe Not available 09/05/20142013 1 RxNorm Mireille Lux [place] null, [place] 5 12:05:56 Medications Name Sig Start Date [...] mass index (BMI) Body weight Oxygen saturation Heart rate Systolic And Diastolic Provider Name and Address Organization Details Last Updated DateTime 3 161.29 cm 44.3 kg/m2 362728. 74 g 98 % 89 /min 132/72 mm[Hg] Veronica Parsons MA [facility] 3 10:00:37 Date Recorded Body height Body mass index (BMI) Body weight Oxygen saturation Heart rate Systolic And Diastolic Provider Name and Address Organization Details Last Updated DateTime 3 161.29 cm 45 kg/m2 578211. 26 g 98 % 82 /min 155/85 mm[Hg] Veronica Parsons MA [facility] 3 10:23:48 Date Recorded Body height Body mass index (BMI) Body weight Systolic And Diastolic Provider Name and Address Organization Details Last Updated DateTime 04/28/2023 161.29 cm 46 kg/m2 600450.39 g 138/76 mm[Hg] Samia Kaplan MA [facility] SI 04/28/2023 08:37:58 Date Recorded Body height Body mass index (BMI) Body weight Heart rate Oxygen saturation Systolic And Diastolic Provider Name and Address Organization Details Last Updated DateTime 3 161.29 cm 45.3 kg/m2 456152. 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 Information not available 05/04/2018 What is your [...] High Blood Pressure N Breast Cancer N Kidney or Bladder Problems N Thyroid Problems N Blood Clots N COPD Y Depression N Lung Disease N GI Problems N Acne N Breast Problem N Skin Problems Y Eating Disorder N Anemia Y Anesthesia Complications N Headaches/Migraines N Anxiety Disorder N Diabetes Y Ovarian Cancer N Muscle, Joint, or Bone Problems N Blood Transfusions N Seizures/Epilepsy N Infertility N Polyps N Acid Reflux (GERD) Y Cancer N [...] virus, quadrivalent, preservative 8 completed Not Available [facility] 08/24/2019 02:39:20 Influenza, split virus, quadrivalent, preservative 1 completed Kiah Stevens [place] null, [place] [facility] 10/28/2020 15:14:59 COVID-19, mRNA, LNP-S, PF, 30 mcg/0.3 mL dose, geovanni-sucrose 2 completed Mica Borjas LPN [place], [place] [facility] 06/10/2022 11:39:54 Tdap 2 completed Pascale Restrepo MD Attn: Accounting[address] [place], [address], [place] [facility] 06/10/2022 14:52:43 Influenza, split virus, quadrivalent, PF 3 completed DAMIR STARR Attn: Accounting[address] [facility], [place], [address], [place] [facility] 04/28/2023 14:14:15 COVID-19, mRNA, LNP-S, PF, 50 mcg/0.5 mL 3 completed Nimco Baron [place] null, [place] [facility] 07/14/2023 09:45:02 Influenza, split virus, quadrivalent, preservative 5 completed Not Available [facility] 08/24/2019 02:50:25 Past Encounters Encounter ID Performer Location Encounter Start Date Encounter Closed Date Diagnosis/Indication Diagnosis SNOMED-CT Code Diagnosis ICD10 Code Diagnosis IMO Codes Diagnosis Note [id number] Pascale Restrepo MD [facility] (Adult Med) [address] [place] [phone] 09/05/2014 11:34:55 09/05/2014 18:08:20 Chronic obstructive pulmonary disease 21373720 Ex-smoker 9852998 Morbid obesity 581506046 Chronic he adache disorder 946399813 Edema of l ower extremity 569431933 [id number] Pascale Restrepo MD [facility] (Adult Med) [address] [place] [phone] 10/10/2014 10:26:26 10/10/2014 12:32:04 Chronic obstructive pulmonary disease 20842116 Edema of l ower extremity 648486279 Ex-smoker 7635026 Morbid obesity 460010606 Metabolic syndrome X 565057000 Gastroesop hageal reflux disease 465991557 [id number] Pascale Restrepo MD [facility] (Adult Med) [address] [place] [id number] 05/27/2015 10:34:00 05/27/2015 12:01:35 Chronic obstructive pulmonary disease 24785161 J44.9 Edema of l ower extremity 420395820 R60.0 Gastroesop hageal reflux disease 040272449 K21.9 Metabolic syndrome X 237 795356 E88.81 Morbid obesity 358755148 E66.01 Administra tion of influenza vaccine 30474499 Z23 Screening mammography 24 893329 Z12.31 [id number] MD Kathy Austin (Adult Med) [address] [place] [phone] 06/24/2015 12:31:50 06/24/2015 13:17:11 Diabetes mellitus 84136167 E13.65 Chronic ob structive pulmonary disease 34788577 J44.9 Ex-smoker 5375778 Z87.89 1 Gastroesop hageal reflux disease 850985334 K21.9 Calcificat ion of breast 384313273 R92.1 Morbid obesity 704751142 E66.01 Secondary hyperlipidemia 361589768 E78.5 [id number] Pascale Restrepo MD [facility] (Adult Med) [address] [place] [id number] 09/29/2015 12:12:13 09/29/2015 12:45:40 Diabetes mellitus 99419447 E13.65 Chronic ob structive pulmonary disease 24511128 J44.9 Edema of l ower extremity 933769705 R60.0 Ex-smoker 0230904 Z87.89 1 Gastroesop hageal reflux disease 308545184 K21.9 Pneumonia 235631075 J18. 9 Hyperlipidemia 77116746 E78.5 [id number] Pascale Restrepo MD [facility] (Adult Med) [address] [place] [phone] 12/29/2015 10:14:27 12/29/2015 11:45:29 Diabetes mellitus 31274530 E13.65 Ex-smoker 5600758 Z87.89 1 Gastroesop hageal reflux disease 484615123 K21.9 Chronic ob structive pulmonary disease 30051553 J44.9 Hyperlipidemia 64319850 E78.5 Edema of l ower extremity 306580731 R60.0 Microalbum inuric diabetic nephropathy 425198021 E11.21 Morbid obesity 497395643 E66.01 [id number] [facility] [address] [place] [id number] 03/29/2016 10:16:12 03/29/2016 18:06:34 Diabetes mellitus 73099678 E13.65 Chronic ob structive pulmonary disease 49416929 J44.9 Edema of l ower extremity 263673222 R60.0 Ex-smoker 8473300 Z87.89 1 Gastroesop hageal reflux disease 303007509 K21.9 Hyperlipidemia 44301699 E78.5 Metabolic syndrome X 237 711140 E88.81 Morbid obesity 074047469 E66.01 Microalbum inuric diabetic nephropathy 043402063 E11.21 [id number] Pascale Restrepo MD [facility] (Adult Med) [address] [place] [id number] 02/14/2018 17:19:46 02/14/2018 18:24:18 Type 2 diabetes mellitus without complication 253505941 E11.9 She has not been in this office for about 2 years and also ran out the medication . Acid reflux 327034823 K2 1.9 Edema of l ower extremity 054083200 R60.0 She has off and off of water retension , asking water pill. Morbid obesity 875644770 E66.01 Diet, exercise and lose weight. [id number] Pascale Restrepo MD [facility] (Adult Med) [address] [place] [id number] 04/17/2018 16:01:48 04/17/2018 17:13:59 Uncontrolled type 2 diabetes mellitus 004396775 E11.65 Diabetic diet, exercise and lose weight , she had annular eye ex. Chronic ob structive pulmonary disease 95944024 J44.9 Type 2 shavon betes mellitus without complication 947709879 E11.9 She has not been in this office for about 2 years and also ran out the medication . Screening mammography 24 572082 Z12.31 Screening for malignant neoplasm of colon 292954762 Z12.11 Patient refuses. Screening for malignant neoplasm of cervix 148699965 Z12.4 [id number] MD Kathy Olmstead (IAP DISPLAYS ANALYST) [address] [place] [id number] 05/04/2018 11:16:37 05/04/2018 13:04:28 Gynecologic examination 40384110 Z01.411 Age appropriat e counseling done. Abnormal u terine bleeding 2036739582 9100 N93.9 counseled about causes, risks of it. offered endometria l biopsy and counseled about procedure. she verbalized understand ing and she agrees for it. she wanted to come back for it. advised to take pain medication like tylenol 1-2 hrs before she come in for endometria l biopsy. Urine test negative in office today. Venereal d isease screening 645615375 Z11.3 Patient refused blood work for STD's. Administra tion of influenza vaccine 55530325 Z23 [id number] MD Kathy Olmstead (IAP DISPLAYS ANALYST) [address] [place] [phone] 05/28/2018 15:22:52 05/28/2018 17:28:38 Abnormal uterine bleeding 8059206661 9100 N93.9 D/W patient lab work, PAP, [...] pain. She verbalized understand ing. Uterine leiomyoma 782930 05 D25.9 COUNSELED ABOUT IT. Patient refused medical management or surgical management at this time. Hemoglobin A1c between 7 percent to 10 percent indicating borderline diabetic control 003081080 E11.9 ADVISED TO F/U WITH PCP. Hypercholesterolemia 136 01114 E78.00 ADVISED TO F/U WITH PCP.. [id number] [facility] [address] [place] [phone] 07/17/2018 16:35:02 07/17/2018 18:27:17 Chronic obstructive pulmonary disease 52407517 J44.9 Type 2 shavon betes mellitus 24743556 E11.9 Blood sugar is 152 mg%. Uncontroll ed type 2 diabetes mellitus 115206721 E11.65 Diabetic diet, exercise and lose weight , she had annular eye ex. Type 2 shavon betes mellitus without complication 961646162 E11.9 She has not been in this office for about 2 years and also ran out the medication . Diabetic diet, exercise and lose weight. Dyslipidem ia due to type 2 diabetes mellitus 0071172174 02 E78.5 Edema of l ower extremity 860668147 R60.0 She has off and off of water retension , asking water pill. [id number] MD Kathy Austin (Adult Med) [address] [place] [address] [id number] 09/25/2018 14:05:37 09/26/2018 12:28:56 Acute conjunctivitis 97684040 H10.32 Pt advised to call office in 2-3 days for progress, optional opthamolog ist referral. Pain of le ft shoulder joint 1358655708 0116122 M25.512 Discussed with pt she agreed to try medication w/ optional x ray and referral per Dr. Restrepo [id number] MD Kathy Austin (Adult Med) [address] [place] [address] [id number] 05/05/2020 08:20:35 05/06/2020 08:27:06 Chronic obstructive pulmonary disease 25996081 J44.9 Stable, she will let this office know about her inhaler of maintenanc e. Diabetes mellitus 347817 09 E13.65 Diabetic diet, exercise and keep the weight down.. Edema of l ower extremity 643093860 R60.0 She has off and off of water retension , asking water pill. Gastroesop hageal reflux disease 363203918 K21.9 Has D/C ranitidine , will change to famotidine instead. Hyperlipidemia 41683509 E78.5 Low animal fat diet. Metabolic syndrome X 237 667824 E88.81 Diet, exercise lose weight . Microalbum inuric diabetic nephropathy 888455864 E11.21 Stable. Dyslipidem ia due to type 2 diabetes mellitus 7552919300 02 E78.5 Low animal fat diet. Type 2 shavon betes mellitus without complication 467640187 E11.9 She has not been in this office for about 2 years and also ran out the medication . Diabetic diet, exercise and lose weight. [id number] MD Kathy Austin (Adult Med) [address] [place] [address] [phone] 10/28/2020 14:18:23 10/29/2020 10:40:08 Chronic obstructive pulmonary disease 23334699 J44.9 Stable, she will let this office know about her inhaler of maintenanc e. Diabetes mellitus 878388 09 E13.65 Diabetic diet, exercise and keep the weight down.. Edema of l ower extremity 766189901 R60.0 She has off and off of water retension , asking water pill. Gastroesop hageal reflux disease 183406409 K21.9 Has D/C ranitidine , will change to famotidine instead. Hyperlipidemia 94494165 E78.5 Low animal fat diet. Microalbum inuric diabetic nephropathy 077421695 E11.21 Stable. Morbid obesity 118058601 E66.01 Diet, exercise and lose weight. Type 2 shavon betes mellitus without complication 855733195 E11.9 She has not been in this office for about 2 years and also ran out the medication . Diabetic diet, exercise and lose weight. Administra tion of influenza vaccine 47437507 Z23 Not sick today, no previous allergy. 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 Skin lesion 47788722 L98 .9 Left elbow, about egg size, soft , will refer to plastic surgeon . Getting bigger, under the skin. She lives [facility] [place]. [id number] Pascale Restrepo MD [facility] (Adult Med) [address] [place] [address] 04/02/2021 09:39:36 04/07/2021 17:06:13 Diabetes mellitus 43095918 E13.65 Diabetic diet, exercise and keep the weight down.. Chronic ob structive pulmonary disease 18432950 J44.9 Stable, she will let this office know about her inhaler of maintenanc e. Edema of l ower extremity 106178211 R60.0 She has off and off of water retension , asking water pill. Gastroesop hageal reflux disease 958986466 K21.9 Has D/C ranitidine , will change to famotidine instead. Hyperlipidemia 40377903 E78.5 Low animal fat diet. Metabolic syndrome X 237 195171 E88.81 Diet, exercise lose weight . Microalbum inuric diabetic nephropathy 094976884 E11.21 Stable. Type 2 shavon betes mellitus without complication 425593256 E11.9 She has not been in this office for about 2 years and also ran out the medication . Diabetic diet, exercise and lose weight. [id number] Pascale Restrepo MD [facility] (Adult Med) [address] [place] [phone] 07/23/2021 10:04:46 07/26/2021 13:18:31 Chronic obstructive pulmonary disease 63664549 J44.9 Stable, she will let this office know about her inhaler of maintenanc e. Diabetes mellitus 606768 09 E13.65 Diabetic diet, exercise and keep the weight down.. Edema of l ower extremity 372127359 R60.0 She has off and off of water retension , asking water pill. Gastroesop hageal reflux disease 743092520 K21.9 Has D/C ranitidine , will change to famotidine instead. Hyperlipidemia 93032588 E78.5 Low animal fat diet. Low animal fat diet. Metabolic syndrome X 237 849756 E88.81 Diet, exercise lose weight . 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 Below 130/80 mm Hg. Morbid obesity 831620178 E66.01 Diet, exercise and lose weight. Has lost about 62 pounds since 2014. Type 2 shavon betes mellitus without complication 248450682 E11.9 She has not been in this office for about 2 years and also ran out the medication . Diabetic diet, exercise and lose weight. [id number] Pascale Restrepo MD [facility] (Adult Med) [address] [place] [phone] 11/19/2021 10:39:27 11/19/2021 11:05:23 Morbid obesity 369733805 E66.01 Diet, exercise and lose weight. Has lost about 62 pounds since 2014. Microalbum inuric diabetic nephropathy 220166987 E11.21 Stable.Als o hopefully will bring down blood pressure to the goal as well. Below 130/80 mm Hg. Metabolic syndrome X 237 158869 E88.81 Diet, exercise lose weight . She has lost about 62 pounds since 2014. Gastroesop hageal reflux disease 254052310 K21.9 Has D/C ranitidine , will change to famotidine instead. Edema of l ower extremity 582569731 R60.0 She has off and on of water retension , asking water pill. Diabetes mellitus 928302 09 E13.65 Diabetic diet, exercise and keep the weight down.. Chronic ob structive pulmonary disease 37816509 J44.9 Stable, she will let this office know about her inhaler of maintenanc e. Screening mammography 24 393158 Z12.31 SHE REFUSES, Screening for malignant neoplasm of colon 604704299 Z12.11 Patient refuses. Screening for malignant neoplasm of respiratory tract 930349352 Z12.2 PATIENT REFUSES. [id number] MD [facility] (Adult Med) [address] [place] [phone] 03/18/2022 11:10:22 03/22/2022 09:16:57 COVID-19 338104269 U07.1 Discussed with patient, she is willing to try med as ordered. home quarantine for at least 5-7 days. Might experience metallic tast. [id number] MD [facility] (Adult Med) [address] [place] [phone] 06/10/2022 10:20:44 06/13/2022 13:23:01 Diabetes mellitus 96825888 E13.65 Diabetic diet, exercise and keep the weight down.. She will try current med for q while before making change. Administra tion of diphtheria, pertussis, and tetanus vaccine 300266862 Z23 She tolerated shot well. Screening mammography 24 101450 Z12.31 SHE agreed today 06-10-2022 . [id number] DAMIR IVORY (Peds) [address] [place] [phone] 06/10/2022 11:08:06 06/21/2022 09:08:57 Administration of SARS-CoV-2 mRNA vaccine 8561883698 Z23 [id number] MD [facility] (Adult Med) [address] [place] [phone] 09/16/2022 09:45:51 09/20/2022 13:52:15 Morbid obesity 060896124 E66.01 Diet, exercise and lose weight. Has lost about 62 pounds since 2014. Xerosis du e to atopic dermatitis 311411312 L85.3 itching on the right forearm. probabaly due to xerosis. She agreed for the med to try as needed. Chronic ob structive pulmonary disease 51008429 J44.9 Stable, she will let this office know about her inhaler of maintenanc e. Diabetes mellitus 120068 09 E13.65 Diabetic diet, exercise and keep the weight down.. She will try current med for q while before making change. Edema of l ower extremity 382167007 R60.0 She has off and on ofwater retension , asking water pill. On furosemide as needed. Gastroesop hageal reflux disease 734721296 K21.9 Has D/C ranitidine , will change to famotidine instead. Hyperlipidemia 41316626 E78.5 Low animal fat diet. Low animal fat diet. On atorvastat in. Screening mammography 24 926240 Z12.31 SHE agreed today 06-10-2022 . [id number] Pascale Restrepo MD [facility] (Adult Med) [address] [place] [address] 02/10/2023 10:08:41 02/13/2023 16:39:23 Type 2 diabetes mellitus 07385790 E11.9 Blood sugar is 152 mg%.. Med refills. Chronic ob structive pulmonary disease 99655478 J44.9 Stable, she will let this office know about her inhaler of maintenanc e. Diabetes mellitus 484698 E13.65 Diabetic diet, exercise and keep the weight down.. She will try current med for q while before making change. Hyperlipidemia 71383045 E78.5 Low animal fat diet. Low animal fat diet. On atorvastat in. Microalbum inuric diabetic nephropathy 870165700 E11.21 Stable.Als o hopefully will bring down blood pressure to the goal as well. Below 130/80 mm Hg. Gastroesop hageal reflux disease 740063500 K21.9 Has D/C ranitidine , will change to famotidine instead. Edema of l ower extremity 670467342 R60.0 She has off and on ofwater retension , asking water pill. On furosemide as needed. Only on the right leg/foot. Type 2 shavon betes mellitus without complication 734212851 E11.9 She has not been in this office for about 2 years and also ran out the medication . Diabetic diet, exercise and lose weight. Renewal of prescription 758727312 Z76.0 Screening for malignant neoplasm of cervix 258067804 Z12.4 She agreed for the screening. HIV screen ing declined 5887224855 29112 Z53.20 She declined 02-10-23. [id number] DAMIR STARR (IAP DISPLAYS ANALYST) [address] [place] [phone] 04/28/2023 08:22:16 05/03/2023 16:04:00 Screening for malignant neoplasm of colon 463209299 Z12.11 Pt never had colonoscop y previously , agreeable to cologuard. Gynecologi c examination 76418962 Z01.419 Cervical cancer screening: Last Pap 2017 NILM/HPV neg, updated todayBreas t cancer screening: Last mammogram 01/20/23 BIRADS 2Colonosco py: dueDiet/ex ercise: Counseled regarding importance of physical activity, healthy diet and appropriat e calcium intake.RTC in 1yr Morbid obesity 703421861 E66.01 BMI 46 Administra tion of influenza vaccine 71706478 Z23 [id number] Pascale Restrepo MD [facility] (Adult Med) [address] [place] [phone] 06/23/2023 11:34:02 06/27/2023 16:19:39 Acute sinusitis 79010986 J01.90 Discussed with patient. d=she agreed to try med as ordered. Diabetes mellitus 603309 09 E13.65 Diabetic diet, exercise and keep the weight down.. She will try current med for q while before making change. On farxiga, metformin and pioglitazo ne She will find a endocrinol ogist [place], and let this office know, then we will make referral. 06-23-23. Edema of l ower extremity 930981283 R60.0 She has off and on ofwater retension , asking water pill. On furosemide as needed. Only on the right leg/foot. Gastroesop hageal reflux disease 850854033 K21.9 Has D/C ranitidine , will change to famotidine instead. Hyperlipidemia 90471890 E78.5 Low animal fat diet. Low animal fat diet. On atorvastat in. Microalbum inuric diabetic nephropathy 737156445 E11.21 Stable.Als o hopefully will bring down blood pressure to the goal as well. Below 130/80 mm Hg. On lisinopril . Morbid obesity 684007186 E66.01 Diet, exercise and lose weight. Has lost about 62 pounds since 2014. BMI is 45.3 today 06-23-23. HIV screen ing declined 4995000019 73739 Z53.20 She declined 02-10-23. She declined today 06-23-23. [id number] DAMIR IVORY (Peds) [address] [place] [address] 07/14/2023 09:18:39 07/17/2023 09:21:05 Administration of SARS-CoV-2 mRNA vaccine 9120964283 Z23 Health Concerns Section Related Observation LastModified by Organization Detai ls LastModified Time None Recorded Concern Status LastModified by Organization Details LastModified Time None Recorded Advance Directives Directive N: Payers Insurance Date Sequence Insurance Name Policy Number Policy Quinteros Covered Member ID Quinteros Member ID Guarantor Name 10/17/2023 1 [facility] (PPO) [id number] Ebony Velasquez [id number] Ebony Velasquez 11/13/2018 1 [facility] - DOS PRIOR TO 2021 (MEDICAID REPLACEMENT - HMO) Ebony Velasquez [id number] Ebony Velasquez 09/25/2018 1 [facility] (MEDICAID HMO) Ebony Velasquez [id number] Ebony Velasquez 11/02/2020 1 *SELF PAY* Damir Velasquez Notes Date Note Type Note Provider Name and Address Organization Details Recorded Time 3 text/html ROS as noted in the HPI Office visit, allergic to Aleve. has enough med. Also itching on fore arm. Pascale Restrepo MD Attn: Accounting,[address] [place], [address], [facility] 09/16/2022 10:44:26 3 text/html ROS as noted in the HPI Office visit, allergic to Aleve, . History of type 2 DM. COPD. , dyslipidemia. and chronic edema of right leg since she had infection years ago. Med refills.came with . Pascale Restrepo MD Attn: Accounting[address] [place], [address], [facility] 02/10/2023 11:47:00 3 text/html Annual GYNReported by PatientGenitourinary symptomsFor menstrual cycle, patient reportsperimenopausal. For urinary symptoms, patient reportsno hematuriaandno incontinence. For vulva, patient reportsno genital lesion. For vagina, patient reportsnormal vaginal discharge.Breast symptomsFor breast, patient reportsno breast pain,no breast lump, andno nipple discharge.Endocrine symptomsFor sexual complaints, patient reportsno sexual complaints,no pain during intercourse, andnormal libido. For menopausal symptoms, patient reportsno menopausal symptomsandnormal vaginal lubrication.Psychological symptomsFor psychological symptoms, patient reportsno depression,no anxiety, andno pmdd.Preventative measuresFor preventive measures, patient reportsencourage self breast examination,encourage regular exercise,encourage no tobacco use,followed with q3 year pap smear and high risk hpv typing,mammogram performed within the past year, andneeds to schedule colonoscopy.ROS as noted in the HPI 57 y/o female coming in for annual WWE. Last pap smear was back in 2018. Pt believes she has had abnormal paps before but unsure what the results were. Had LEEP procedure approx 20 years ago. She is pelon-menopausal, has not had normal periods in over a year with occasional spotting. Denies hot flashes, discharge, pelvic/abdominal pain. DAMIR STARR Attn: Accounting[address] [facility], [place], [address], [facility] 04/28/2023 14:42:31 3 text/html ROS as noted in the HPI Office visit, allergic to aleve, type 2 DM. has enough med refills. C.\/C sinus congested, hard to breathe thru. No fever, no chest pain, no other complaints. ROS as noted in HPI. Pascale Restrepo MD Attn: Accounting[address] [facility], [place], [address], [place] [facility] 06/23/2023 12:10:33 OBGyn Episode Ob Episode Information Episode Created Date Number of Fetuses Patient Bloodtype Patient rh Status Prepregnancy Weight lbs Domestic Partner Domestic Partner Phone Father Name Television [employer] Repairer Status 05/04/20 18 1 CLOSED Fetus Data First Name Last Name Admitted to NICU Weight (g) Sex Living Outcome Pediatric Complications Fetus ID Race Codes Race Delivery Type 4365.82 3 M Full Term [id number] Vaginal Earl Calculation Initial Earl Date Initial [...] Domestic Partner Domestic Partner Phone Father Name Television And [employer] Repairer Status 05/04/20 18 1 CLOSED Fetus Data First Name Last Name Admitted to NICU Weight (g) Sex Living Outcome Pediatric Complications Fetus ID Race Codes Race Delivery Type 4195.72 6 M Full Term [id number] Vaginal Earl Calculation Initial Earl Date Initial [...] None 40 false Baby was born in [place] Discharge Information Feeding Method Contraceptive Method Maternal HG B and HCT Levels
== END 2025-07-21 17:16 | disposition home or self-care (01) ==
PROVIDERS: PCP Family Medicine; Visit Provider Nurse Practitioner Family
DX: M25.512 Pain in left shoulder (principal)
CPT/HCPCS: 73030